=== PATIENT | female | born 1940 | race African-American/Black ===

== ENCOUNTER 2020-01-07 11:53 | Inpatient (IN) | payer MEDICARE, OTHER ==
[~2020-01-07] VITALS: Ht 157.5 cm; Wt 60.3 kg
[2020-01-07 11:55] VITALS: BP 116/81
[2020-01-07] MEDS ORDERED: FUROSEMIDE40 MG ORAL (12:19)
[2020-01-07] MEDS ORDERED: DEXILANT60 MG ORAL (12:19)
[2020-01-07] MEDS ORDERED: [UNRECOGNIZED DRUG - OTHER] IH (12:19)
[2020-01-07] MEDS ORDERED: SPIRONOLACTONE25 MG ORAL (12:19)
[2020-01-07] MEDS ORDERED: INCRUSE ELLI62.5 MCG IH (12:19)
[2020-01-07] MEDS ORDERED: ELIQUIS2.5 MG PO (12:19)
[2020-01-07] MEDS ORDERED: MULTIVITAMINS1 EAC2 ORAL (12:19)
[2020-01-07] MEDS ORDERED: [UNRECOGNIZED DRUG - REMARK] PO (12:26)
[2020-01-07] MEDS ORDERED: VENTOLIN HFA18 GM INH (12:26)
[2020-01-07] MEDS ORDERED: DOCUSATE SODIU100 MG ORAL (12:26)
[2020-01-07] MEDS ORDERED: METOLAZONE5 MG PO (12:26)
[2020-01-07] MEDS ORDERED: MIDODRINE HCL5 MG ORAL (12:28)
[2020-01-07] MEDS ORDERED: DILTIAZEM ER120 MG PO (12:28)
[2020-01-07] MEDS ORDERED: METOCLOPRAMIDE H5 M1 ORAL (12:28)
[2020-01-07 13:27] LABS: APPEARANCE,URINE CLEAR; BASOPHILS % (AUTO) 1.8 % (0.0-2.0); BILIRUBIN, URINE NEGATIVE (NEGATIVE); COLOR,URINE PALE YELLOW; EOSINOPHILS % (AUTO) 1.7 % (0.0-3.0); GLUCOSE, URINE (UA) NEGATIVE (NEGATIVE); HEMATOCRIT 34.8 % (37.0-47.0); HEMOGLOBIN 11.6 G/DL (12.0-16.0); KETONES,URINE NEGATIVE (NEGATIVE); LEUKOCYTE ESTERASE ,URINE NEGATIVE (NEGATIVE); LYMPHOCYTES % (AUTO) 9.7 % (20.0-45.0); MEAN CORPUSCULAR VOLUME 87 FL (80-99); MONOCYTES % (AUTO) 6.7 % (1.0-10.0); NEUTROPHILS % (AUTO) 80.1 % (45.0-75.0); NITRITE,URINE NEGATIVE (NEGATIVE); PH,URINE 6 (4.5-8.0); PLATELET COUNT 234 K/UL (150-450); PROTEIN,URINE NEGATIVE (NEGATIVE); RED BLOOD COUNT 4.01 M/UL (4.20-5.40); RED CELL DISTRIBUTION WIDTH 17.2 % (11.6-14.8); UROBILINOGEN,URINE NORMAL MG/DL (0.0-1.0); WHITE BLOOD COUNT 8.5 K/UL (4.8-10.8)
[2020-01-07 13:32] LABS: ANION GAP 5 mmol/L (5-15); BLOOD UREA NITROGEN 37 mg/dL (7-18); CALCIUM 8.1 MG/DL (8.5-10.1); CARBON DIOXIDE 32 MMOL/L (21-32); CHLORIDE 106 MMOL/L (98-107); CREATININE 1.5 MG/DL (0.55-1.30); POTASSIUM 4.6 MMOL/L (3.5-5.1); SODIUM 143 MMOL/L (136-145)
[2020-01-07 13:46] LABS: ALANINE AMINOTRANSFERASE 20 U/L (12-78); ALBUMIN 2.1 G/DL (3.4-5.0); ALBUMIN/GLOBULIN RATIO 0.6 (1.0-2.7); ALKALINE PHOSPHATASE 85 U/L (46-116); ASPARTATE AMINO TRANSFERASE 29 U/L (15-37); BILIRUBIN,TOTAL 0.4 MG/DL (0.2-1.0); CKMB 1.6 NG/ML (0.0-3.6); CREATINE KINASE 68 U/L (26-308)
[2020-01-07 14:00] VITALS: BP 123/78
--- NOTE | 2020-01-07 15:12 | Emergency Room Report ---
History of Present Illness General Chief Complaint: Upper Respiratory Illness Source: Medical Record, EMS Present Illness HPI 79-year-old female history of CHF, chronic kidney disease, chronic right pleural effusion presents for shortness of breath and right pleural effusion. Patient has a history of requiring thoracentesis in the past. Last thoracentesis was at the beginning of the year. She denies any fever cough. She denies any nausea or vomiting. She does come from a [facility] facility with coronavirus patients. She has a history of right pleural effusion. She was alert oriented in no distress on arrival. Allergies: Coded Allergies: No Known Allergies (Unverified , 01/07/20) COVID-19 Screening Contact w/high risk pt: No Recent Travel to affected area: No Experienced COVID-19 symptoms?: Yes COVID-19 symptoms experienced: Cough Patient History Last Menstrual Period: na Nursing Documentation-PMH Past Medical History: No History, Except For Hx Cardiac Problems: Yes - afib, aortic stenosis, endocarditis, cor pulmonale Hx Hypertension: Yes Hx COPD: Yes Hx Cerebrovascular Accident: Yes Review of Systems All Other Systems: negative except mentioned in HPI Physical Exam Vital Signs Date Time Temp Pulse Resp B/P (MAP) Pulse Ox O2 Delivery O2 Flow Rate FiO2 01/07/20 11:55 98.4 101 22 116/81 98 Nasal Cannula 4.0 Sp02 EP Interpretation: reviewed, normal General Appearance: well appearing, no apparent distress Head: normocephalic, atraumatic Eyes: bilateral eye PERRL, bilateral eye EOMI ENT: hearing grossly normal, moist mucus membranes Neck: full range of motion, supple Respiratory: no respiratory distress, no wheezing, decreased breath sounds - Right lung base Cardiovascular #1: normal peripheral pulses, no murmur, tachycardia Gastrointestinal: non tender, soft, non-distended, no guarding Musculoskeletal: other - Bilateral lower extremity edema 2+ up to the knees Neurologic: alert, oriented x3, no focal defects Skin: normal color, warm/dry Medical Decision Making Diagnostic Impression: Primary Impression: Recurrent right pleural effusion Additional Impression: Possible Covd-19 infection ER Course Patient presented from [facility] facility for shortness of breath and recurrent right pleural effusion. Primary care doctor also requested coronavirus testing as she came from a sick facility with coronavirus patients. Patient was alert oriented no acute distress. Chest x-ray did demonstrate right pleural effusion. She was afebrile and normal white blood cell count. Actually have a low suspicion for pneumonia at this time and suspect is having a recurrent right pleural effusion. She may require thoracentesis as an inpatient. Will be admitted to her primary doctor. Lactate was mildly elevated however low suspicion for sepsis at this time. Patient does have a history of liver dysfunction which may cause mild elevation in her lactate. Laboratory Tests Test 01/07/20 13:00 White Blood Count 8.5 K/UL (4.8-10.8) Red Blood Count 4.01 M/UL (4.20-5.40) L Hemoglobin 11.6 G/DL (12.0-16.0) L Hematocrit 34.8 % (37.0-47.0) L Mean Corpuscular Volume 87 FL (80-99) Mean Corpuscular Hemoglobin 29.0 PG (27.0-31.0) Mean Corpuscular Hemoglobin Concent 33.4 G/DL (32.0-36.0) Red Cell Distribution Width 17.2 % (11.6-14.8) H Platelet Count 234 K/UL (150-450) Mean Platelet Volume 6.7 FL (6.5-10.1) Neutrophils (%) (Auto) 80.1 % (45.0-75.0) H Lymphocytes (%) (Auto) 9.7 % (20.0-45.0) L Monocytes (%) (Auto) 6.7 % (1.0-10.0) Eosinophils (%) (Auto) 1.7 % (0.0-3.0) Basophils (%) (Auto) 1.8 % (0.0-2.0) Prothrombin Time 11.1 SEC (9.30-11.50) Prothrombin Time INR 1.0 (0.9-1.1) Activated Partial Thromboplast Time 30 SEC (23-33) Urine Color Pale yellow Urine Appearance Clear Urine pH 6 (4.5-8.0) Urine Specific [place] 1.015 (1.005-1.035) Urine Protein Negative (NEGATIVE) Urine Glucose (UA) Negative (NEGATIVE) Urine Ketones Negative (NEGATIVE) Urine Blood 2+ (NEGATIVE) H Urine Nitrite Negative (NEGATIVE) Urine Bilirubin Negative (NEGATIVE) Urine Urobilinogen Normal MG/DL (0.0-1.0) Urine Leukocyte Esterase Negative (NEGATIVE) Urine RBC 2-4 /HPF (0 - 2) H Urine WBC 0-2 /HPF (0 - 2) Urine Squamous Epithelial Cells Occasional /LPF Urine Bacteria Occasional /HPF (NONE) Sodium Level 143 MMOL/L (136-145) Potassium Level 4.6 MMOL/L (3.5-5.1) Chloride Level 106 MMOL/L (98-107) Carbon Dioxide Level 32 MMOL/L (21-32) Anion Gap 5 mmol/L (5-15) Blood Urea Nitrogen 37 mg/dL (7-18) H Creatinine 1.5 MG/DL (0.55-1.30) H Estimated Glomerular Filtration Rate 40.7 mL/min (>60) Glucose Level 100 MG/DL (74-106) Lactic Acid Level 2.50 mmol/L (0.4-2.0) H Calcium Level 8.1 MG/DL (8.5-10.1) L Total Bilirubin 0.4 MG/DL (0.2-1.0) Aspartate Amino Transferase (AST) 29 U/L (15-37) Alanine Aminotransferase (ALT) 20 U/L (12-78) Alkaline Phosphatase 85 U/L (46-116) Total Creatine Kinase 68 U/L (26-308) Creatine Kinase MB 1.6 NG/ML (0.0-3.6) Creatine Kinase MB Relative Index 2.3 Troponin I 0.010 ng/mL (0.000-0.056) Total Protein 5.9 G/DL (6.4-8.2) L Albumin 2.1 G/DL (3.4-5.0) L Globulin 3.8 g/dL Albumin/Globulin Ratio 0.6 (1.0-2.7) L EKG Diagnostic Results EP Interpretation: 1214 Other Impression afib, rate 101, Nonspecific T wave changes, abnormal ekg Chest X-Ray Diagnostic Results Chest X-Ray Diagnostic Results : Chest X-Ray Ordered: Yes # of Views/Limited/Complete: 1 View Indication: Shortness of Breath EP Interpretation: Yes Interpretation: other - Cardiomegaly, right pleural effusion, pulmonary vascular congestion Last Vital Signs Date Time Temp Pulse Resp B/P (MAP) Pulse Ox O2 Delivery O2 Flow Rate FiO2 01/07/20 14:00 98.6 100 18 123/78 99 Nasal Cannula 4.0 Disposition: ADMITTED INPATIENT Condition: Serious Referrals: Stone Locke MD (PCP) Burton Paiz M.D. January 07, 2020 15:12
--- NOTE | 2020-01-07 15:39 | Diagnostic Imaging Report ---
Indication: Shortness of breath Technique: One view of the chest Comparison: none Findings: The heart is enlarged. There is a large right pleural effusion. There is a small left pleural effusion. There is mild interstitial congestion and possibly some hazy right upper lung opacity. Impression: Cardiomegaly Large right and small left pleural effusions Mild interstitial edema
[2020-01-07 17:25] VITALS: BP 134/66
[2020-01-07] MEDS ORDERED: Milk of Magnesia 30ml Ud ORAL PRN (17:45)
[2020-01-07] MEDS: Docusate 100mg cap ORAL SCH (18:00)
[2020-01-07 20:00] VITALS: BP 99/59
[2020-01-07] MEDS ORDERED: Albuterol 90mcg Inhaler 8gm INH PRN (20:15)
[2020-01-08] VITALS: BP 109/66
--- NOTE | 2020-01-08 02:30 | Consultation ---
DATE OF CONSULTATION: 01/07/2020 PULMONARY CONSULTATION CONSULTING PHYSICIAN: Aram Razo MD. HISTORY OF PRESENT ILLNESS: This is a 79-year-old female with history of CHF, CKD, and chronic right effusion who came to the hospital. Patient has had thoracentesis in the past, however, the last 1 was done earlier this year. Patient denied any fever or cough. She was seen and worked up and admitted to the hospital. Apparently, she has been exposed to COVID-19 patients. PAST HISTORY: Notable for AFib, aortic stenosis, history of endocarditis, cor pulmonale, COPD, hypertension, previous CVA, group home resident status. HOME MEDICATIONS: Reviewed and reconciled in the chart. REVIEW OF SYSTEMS: Unreliable. PREVIOUS SURGERIES: Previous thoracentesis. PHYSICAL EXAMINATION: GENERAL: Reveals a 79-year-old female. VITAL SIGNS: Blood pressure at this time is 120/70, heart rate 100, respirations 18, O2 saturation 95% on 2 L of oxygen, 99% on 4 liters of oxygen. She is afebrile. HEENT: Unremarkable. CHEST: Decreased breath sounds at the right base. ABDOMEN: Soft. EXTREMITIES: There is no edema. LABORATORY DATA: Lab testing shows a hemoglobin . Creatinine 1.5. Lactic acid 2.5, repeated 1.6. Albumin is 2.1. Urinalysis shows few rbc's. Coags are negative. X-ray chest was obtained, which shows a large right effusion, which is chronic. There is a small left effusion. IMPRESSION: 1. Bilateral pleural effusions, right greater than left. 2. intermediate resident. 3. CHF. 4. CKD. DISCUSSION: Patient had a transiently high lactic acid. I am unclear as to the origin of that problem. She does not appear to be septic or infected. It will be prudent to hold off antibiotics till there is a clear source of infection. There is no fever or any obvious signs of infection. She may benefit from diuresis. I would hold off on thoracentesis as this is a chronic effusion and there is a risk of trapped lung/pneumothorax. At this time, also she is asymptomatic from pulmonary standpoint. We will follow carefully. Aram Razo M.D. DR: RUBIA JOB#: [id number] CC:
[2020-01-08 04:00] VITALS: BP 110/66
[2020-01-08 08:00] VITALS: BP 102/54
[2020-01-08 08:34] LABS: BASOPHILS % (AUTO) 2.2 % (0.0-2.0); EOSINOPHILS % (AUTO) 1.7 % (0.0-3.0); HEMATOCRIT 30.7 % (37.0-47.0); HEMOGLOBIN 10.5 G/DL (12.0-16.0); LYMPHOCYTES % (AUTO) 7.1 % (20.0-45.0); MEAN CORPUSCULAR VOLUME 86 FL (80-99); MONOCYTES % (AUTO) 8.6 % (1.0-10.0); NEUTROPHILS % (AUTO) 80.4 % (45.0-75.0); PLATELET COUNT 200 K/UL (150-450); RED BLOOD COUNT 3.56 M/UL (4.20-5.40); RED CELL DISTRIBUTION WIDTH 16.9 % (11.6-14.8); WHITE BLOOD COUNT 9.6 K/UL (4.8-10.8)
[2020-01-08 08:52] LABS: ALANINE AMINOTRANSFERASE 18 U/L (12-78); ALBUMIN 1.8 G/DL (3.4-5.0); ALBUMIN/GLOBULIN RATIO 0.5 (1.0-2.7); ALKALINE PHOSPHATASE 60 U/L (46-116); ANION GAP 7 mmol/L (5-15); ASPARTATE AMINO TRANSFERASE 26 U/L (15-37); BILIRUBIN,TOTAL 0.5 MG/DL (0.2-1.0); BLOOD UREA NITROGEN 37 mg/dL (7-18); CARBON DIOXIDE 28 MMOL/L (21-32); CHLORIDE 106 MMOL/L (98-107); CREATININE 1.5 MG/DL (0.55-1.30); POTASSIUM 4.5 MMOL/L (3.5-5.1); SODIUM 141 MMOL/L (136-145)
[2020-01-08] MEDS ORDERED: dilTIAZem HCl CD 120mg cap ORAL SCH (09:00)
[2020-01-08] MEDS ORDERED: Spironolactone 25mg tab ORAL SCH (09:00)
[2020-01-08] MEDS: Docusate 100mg cap ORAL SCH ×3 (09:29→18:00)
--- NOTE | 2020-01-08 11:50 | Pulmonology Progress Note ---
Subjective Interval Events: None new Constitutional: Reports: no symptoms HEENT: Repors: no symptoms Respiratory: Reports: no symptoms Cardiovascular: Reports: no symptoms Gastrointestinal/Abdominal: Reports: no symptoms Genitourinary: Reports: no symptoms Allergies: Coded Allergies: No Known Allergies (Unverified , 01/07/20) Objective Last 24 Hour Vital Signs Date Time Temp Pulse Resp B/P (MAP) Pulse Ox O2 Delivery O2 Flow Rate FiO2 01/08/20 09:00 Nasal Cannula 3.0 01/08/20 09:00 109 102/54 01/08/20 08:00 97.7 109 20 102/54 (70) 100 01/08/20 07:32 98 Nasal Cannula 3.0 32 01/08/20 04:00 98.2 98 22 110/66 (81) 100 01/08/20 00:00 98.8 106 22 109/66 (80) 98 01/07/20 21:00 Nasal Cannula 3.0 01/07/20 20:00 97.1 94 26 99/59 (72) 99 01/07/20 18:19 Nasal Cannula 3.0 01/07/20 17:25 98.9 83 16 134/66 99 Nasal Cannula 4.0 01/07/20 17:25 98.9 83 16 134/66 99 Nasal Cannula 4.0 01/07/20 14:00 98.6 100 18 123/78 99 Nasal Cannula 4.0 01/07/20 12:02 101 22 Nasal Cannula 4.0 01/07/20 11:55 98.4 101 22 116/81 (93) 98 Nasal Cannula 4.0 01/07/20 11:55 98.4 101 22 116/81 98 Nasal Cannula 4.0 Intake and Output 01/07/20 01/08/20 19:00 07:00 Intake Total 240 ml Output Total 200 ml 1000 ml Balance 40 ml -1000 ml Intake Oral 240 ml Output Urine Total 200 ml 1000 ml # Bowel Movements 1 General Appearance: no acute distress HEENT: normocephalic Respiratory/Chest: chest wall non-tender, lungs clear Cardiovascular: normal peripheral pulses, normal rate Abdomen: normal bowel sounds Microbiology Date/Time Source Procedure Growth Status 01/07/20 12:45 Rectum Received Laboratory Tests 01/07/20 13:00: White Blood Count 8.5, Red Blood Count 4.01L, Hemoglobin 11.6L, Hematocrit 34.8L , Mean Corpuscular Volume 87, Mean Corpuscular Hemoglobin 29.0, Mean Corpuscular Hemoglobin Concent 33.4, Red Cell Distribution Width 17.2H, Platelet Count 234, Mean Platelet Volume 6.7, Neutrophils (%) (Auto) 80.1H, Lymphocytes (%) (Auto) 9.7L, Monocytes (%) (Auto) 6.7, Eosinophils (%) (Auto) 1.7, Basophils (%) (Auto) 1.8, Prothrombin Time 11.1, Prothromb Time International Ratio 1.0, Activated Partial Thromboplast Time 30, Urine Color Pale yellow, Urine Appearance Clear, Urine pH 6, Urine Specific [place] 1.015, Urine Protein Negative, Urine Glucose (UA) Negative, Urine Ketones Negative, Urine Blood 2+H, Urine Nitrite Negative, Urine Bilirubin Negative, Urine Urobilinogen Normal, Urine Leukocyte Esterase Negative, Urine RBC 2-4H, Urine WBC 0-2, Urine Squamous Epithelial Cells Occasional, Urine Bacteria Occasional, Sodium Level 143, Potassium Level 4.6, Chloride Level 106, Carbon Dioxide Level 32, Anion Gap 5, Blood Urea Nitrogen 37H, Creatinine 1.5H, Estimat Glomerular Filtration Rate 40.7, Glucose Level 100, Lactic Acid Level 2.50H, Calcium Level 8.1L, Total Bilirubin 0.4, Aspartate Amino Transf (AST/SGOT) 29, Alanine Aminotransferase (ALT/SGPT) 20, Alkaline Phosphatase 85, Total Creatine Kinase 68, Creatine Kinase MB 1.6, Creatine Kinase MB Relative Index 2.3, Troponin I 0.010, Total Protein 5.9L, Albumin 2.1L, Globulin 3.8, Albumin/Globulin Ratio 0.6L 01/07/20 15:00: Lactic Acid Level 1.60 01/08/20 08:10: White Blood Count 9.6, Red Blood Count 3.56L, Hemoglobin 10.5L, Hematocrit 30.7L , Mean Corpuscular Volume 86, Mean Corpuscular Hemoglobin 29.4, Mean Corpuscular Hemoglobin Concent 34.2, Red Cell Distribution Width 16.9H, Platelet Count 200, Mean Platelet Volume 6.0L, Neutrophils (%) (Auto) 80.4H, Lymphocytes (%) (Auto) 7.1L, Monocytes (%) (Auto) 8.6, Eosinophils (%) (Auto) 1.7, Basophils (%) (Auto) 2.2H, Sodium Level 141, Potassium Level 4.5, Chloride Level 106, Carbon Dioxide Level 28, Anion Gap 7, Blood Urea Nitrogen 37H, Creatinine 1.5H, Estimat Glomerular Filtration Rate 40.7, Glucose Level 83, Calcium Level 8.0L, Total Bilirubin 0.5, Aspartate Amino Transf (AST/SGOT) 26, Alanine Aminotransferase (ALT/SGPT) 18, Alkaline Phosphatase 60, Total Protein 5.5L, Albumin 1.8L, Globulin 3.7, Albumin/Globulin Ratio 0.5L Current Medications Medications (Trade) Dose Ordered Sig/Heraclio Route PRN Reason Start Time Stop Time Status Last Admin Dose Admin Acetaminophen (Tylenol) 650 mg Q4H PRN ORAL Mild Pain (Pain Scale 1-3) 01/07/20 17:45 02/06/20 17:44 Albuterol Sulfate (Proventil MDI) 2 puff Q4H PRN INH Shortness of Breath 01/07/20 20:15 04/06/20 20:14 01/08/20 01:00 Apixaban (Eliquis) 2.5 mg DAILY ORAL 01/08/20 09:00 04/07/20 08:59 UNV Diltiazem HCl (Cardizem CD) 120 mg DAILY ORAL 01/08/20 09:00 02/07/20 08:59 Docusate Sodium (Colace) 100 mg TWICE A DAY ORAL 01/07/20 18:00 02/06/20 17:59 01/08/20 09:29 Furosemide (Lasix) 40 mg DAILY IV 01/08/20 09:00 02/07/20 08:59 Magnesium Hydroxide (Mom) 30 ml HSPRN PRN ORAL Constipation 01/07/20 17:45 02/06/20 17:44 Metoclopramide HCl (Reglan) 5 mg Q6H PRN ORAL Nausea & Vomiting 01/07/20 17:45 02/06/20 17:44 Metolazone (Zaroxolyn) 5 mg BID ORAL 01/07/20 18:00 02/06/20 17:59 01/08/20 09:29 Midodrine (Pro-Amatine) 5 mg TID ORAL 01/08/20 09:00 04/06/20 17:59 Multivitamins (Multivitamins) 1 tab DAILY ORAL 01/08/20 09:00 02/07/20 08:59 01/08/20 09:29 Spironolactone (Aldactone) 25 mg DAILY ORAL 01/08/20 09:00 02/07/20 08:59 01/08/20 09:30 Assessment/Plan Assessment/Plan IMPRESSION: 1. Bilateral pleural effusions, right greater than left. 2. intermediate resident. 3. CHF. 4. CKD. DISCUSSION: Patient had a transiently high lactic acid. I am unclear as to the origin of that problem. She does not appear to be septic or infected. It will be prudent to hold off antibiotics till there is a clear source of infection. There is no fever or any obvious signs of infection. She may benefit from diuresis. I would hold off on thoracentesis as this is a chronic effusion and there is a risk of trapped lung/pneumothorax. At this time, also she is asymptomatic from pulmonary standpoint. We will follow carefully. Aram Razo M.D. Aram Razo MD January 08, 2020 11:50
[2020-01-08 12:00] VITALS: BP 103/63
--- NOTE | 2020-01-08 14:16 | Cardiac Electrophysiology PN ---
Subjective Subjective [id number] Objective Last 24 Hour Vital Signs Date Time Temp Pulse Resp B/P (MAP) Pulse Ox O2 Delivery O2 Flow Rate FiO2 01/08/20 12:00 98.2 108 20 103/63 (76) 98 01/08/20 09:00 Nasal Cannula 3.0 01/08/20 09:00 109 102/54 01/08/20 08:00 97.7 109 20 102/54 (70) 100 01/08/20 07:32 98 Nasal Cannula 3.0 32 01/08/20 04:00 98.2 98 22 110/66 (81) 100 01/08/20 00:00 98.8 106 22 109/66 (80) 98 01/07/20 21:00 Nasal Cannula 3.0 01/07/20 20:00 97.1 94 26 99/59 (72) 99 01/07/20 18:19 Nasal Cannula 3.0 01/07/20 17:25 98.9 83 16 134/66 99 Nasal Cannula 4.0 01/07/20 17:25 98.9 83 16 134/66 99 Nasal Cannula 4.0 Intake and Output 01/07/20 01/08/20 19:00 07:00 Intake Total 240 ml Output Total 200 ml 1000 ml Balance 40 ml -1000 ml Intake Oral 240 ml Output Urine Total 200 ml 1000 ml # Bowel Movements 1 Laboratory Tests Test 01/07/20 15:00 01/08/20 08:10 Lactic Acid Level 1.60 mmol/L (0.66-2.22) White Blood Count 9.6 K/UL (4.8-10.8) Red Blood Count 3.56 M/UL (4.20-5.40) L Hemoglobin 10.5 G/DL (12.0-16.0) L Hematocrit 30.7 % (37.0-47.0) L Mean Corpuscular Volume 86 FL (80-99) Mean Corpuscular Hemoglobin 29.4 PG (27.0-31.0) Mean Corpuscular Hemoglobin Concent 34.2 G/DL (32.0-36.0) Red Cell Distribution Width 16.9 % (11.6-14.8) H Platelet Count 200 K/UL (150-450) Mean Platelet Volume 6.0 FL (6.5-10.1) L Neutrophils (%) (Auto) 80.4 % (45.0-75.0) H Lymphocytes (%) (Auto) 7.1 % (20.0-45.0) L Monocytes (%) (Auto) 8.6 % (1.0-10.0) Eosinophils (%) (Auto) 1.7 % (0.0-3.0) Basophils (%) (Auto) 2.2 % (0.0-2.0) H Sodium Level 141 MMOL/L (136-145) Potassium Level 4.5 MMOL/L (3.5-5.1) Chloride Level 106 MMOL/L (98-107) Carbon Dioxide Level 28 MMOL/L (21-32) Anion Gap 7 mmol/L (5-15) Blood Urea Nitrogen 37 mg/dL (7-18) H Creatinine 1.5 MG/DL (0.55-1.30) H Estimat Glomerular Filtration Rate 40.7 mL/min (>60) Glucose Level 83 MG/DL (74-106) Calcium Level 8.0 MG/DL (8.5-10.1) L Total Bilirubin 0.5 MG/DL (0.2-1.0) Aspartate Amino Transf (AST/SGOT) 26 U/L (15-37) Alanine Aminotransferase (ALT/SGPT) 18 U/L (12-78) Alkaline Phosphatase 60 U/L (46-116) Total Protein 5.5 G/DL (6.4-8.2) L Albumin 1.8 G/DL (3.4-5.0) L Globulin 3.7 g/dL Albumin/Globulin Ratio 0.5 (1.0-2.7) L Microbiology Date/Time Source Procedure Growth Status 01/07/20 12:45 Rectum Received Christiano Barney MD January 08, 2020 14:16
[2020-01-08] MEDS ORDERED: Eliquis 2.5mg tablet ORAL SCH (14:59)
[2020-01-08] MEDS: Eliquis 2.5mg tablet ORAL SCH (15:46)
[2020-01-08 16:00] VITALS: BP 104/61
[2020-01-08] MEDS ORDERED: Milk of Magnesia 30ml Ud ORAL PRN (16:00)
[2020-01-08] MEDS ORDERED: Albuterol 90mcg Inhaler 8gm INH PRN (16:15)
[2020-01-08 20:00] VITALS: BP 137/77
--- NOTE | 2020-01-08 21:00 | History and Physical Report ---
DATE OF ADMISSION: 01/07/2020 HISTORY OF PRESENT ILLNESS: The patient comes in, has a history of chronic renal insufficiency and CHF with defibrillator, shortness of breath, worsening pleural effusion, and also possible pneumonia, infiltrate on the x-ray. COVID swab was sent according to the ER doctor. The patient has a history of thoracentesis in the past. The patient denies fever and cough. Does have shortness of breath at times. Denies nausea or vomiting. Denies chills. She is not in any distress. PAST MEDICAL HISTORY: Chronic renal insufficiency, CHF, history of atrial fibrillation, history of aortic stenosis, history of endocarditis, history of cor pulmonale, history of hypertension and COPD, history of CVA, and leg edema as well as constipation as well as GERD. PAST SURGICAL HISTORY: Denies. FAMILY HISTORY: Noncontributory. SOCIAL HISTORY: Does have history of smoking. Denies history of alcohol abuse. Denies history of drug abuse. ALLERGIES: No known allergies. MEDICATIONS: Eliquis, , diltiazem, Lasix, Aldactone, and breathing treatment, albuterol. REVIEW OF SYSTEMS: HEENT: Denies headaches. Respiratory: Does have cough at times. Denies wheezing. Cardiovascular: Denies chest pain. Gastrointestinal: Reports occasional heartburn. Extremities: Denies pain in lower extremities. Central Nervous System: Denies change in speech pattern. The patient just finished a course of antibiotics for endocarditis. PHYSICAL EXAMINATION: VITAL SIGNS: Temperature 98.2, pulse is 98, blood pressure 110/66. HEENT: PERRLA. NECK: Supple. CHEST: Bibasilar rales. CARDIOVASCULAR: Regular rate and rhythm. No murmurs. ABDOMEN: Soft, nontender. EXTREMITIES: 1+ edema. NEUROLOGIC: She is able to move her extremities. LABORATORY DATA: WBC of 8.5, hemoglobin 11.6, platelets 234. Sodium 43, potassium 4.6, BUN of 37, creatinine 1.5, glucose of 100. Troponin is negative. Chest x-ray shows possible infiltrate and pleural effusion. ASSESSMENT AND PLAN: Pneumonia, pleural effusion, COVID test was sent. The patient comes from facility with positive COVID cases. I have consulted Dr. Barney, Dr. Razo, and Dr. Dr. Rajesh Green for the management of the CHF as well as pneumonia and possible thoracentesis for her worsening pleural effusion and antibiotics per Dr. Rajesh Green. Stone Locke M.D. DR: SURENDRA JOB#: [id number] CC:
--- NOTE | 2020-01-08 21:29 | Consultation ---
DATE OF CONSULTATION: 01/08/2020 INFECTIOUS DISEASE CONSULTATION CONSULTING PHYSICIAN: Rajesh Green MD. PRIMARY ATTENDING: Stone Locke MD. REASON FOR CONSULT: Pleural effusion, rule out of COVID-19. HISTORY OF PRESENT ILLNESS: This is a 79-year-old female admitted yesterday from nursing facility because of shortness of breath and coughing. She has history of pleural effusion in the past. Has CHF. No fever. No chills and no other symptoms. PAST MEDICAL HISTORY: CHF, chronic kidney disease, aortic stenosis, atrial fibrillation, cor pulmonale, COPD, anemia, history of CVA. Patient states that she has also 2 leaking valves. Has gallstones, neuropathy. Has history of hospitalization in [facility] 2 months ago. At that time she received diuretic and symptoms improved. ALLERGIES: No known drug allergies. MEDICATIONS: Getting multivitamin, Cardizem, IV Lasix, Eliquis, Aldactone, midodrine, albuterol, Zaroxolyn, metoclopramide, magnesium hydroxide, Tylenol. SOCIAL HISTORY: Never smoker, but has history of secondhand smoking in job place. No history of drug or alcohol abuse. halfway resident. Has four children. Three of them are , two because of cancer, one because of pneumonia. REVIEW OF SYSTEMS: Patient denies any fever and chills. No chest pain. Has dry cough that is not more than usual. Has shortness of breath. No nausea. No vomiting. No dysuria. Has Shelley catheter placement since admission. PHYSICAL EXAMINATION: VITAL SIGNS: Temperature 97.9, pulse 109, blood pressure 102/54. GENERAL APPEARANCE: No acute distress. Seems to have normal weight. HEART: Tachycardic. LUNGS: Bilateral rhonchi. ABDOMEN: Soft, nontender. EXTREMITIES: Has bilateral edema of legs. GENITOURINARY: Has Shelley catheter. NEUROLOGIC: Awake, alert, oriented x3. LABORATORY AND DIAGNOSTIC DATA: WBC 9.6, hemoglobin 10.5, hematocrit 30.7, platelets 200. Sodium 141, potassium 4.5, chloride 106, bicarbonate 28, BUN 37, creatinine 1.5, albumin is 1.8. UA, wbc's 0 to 2. Chest x-ray showed cardiomegaly, large right and small right pleural effusion. Mild interstitial edema. IMPRESSION: Pleural effusion that seems to be recurrent, likely secondary to congestive heart failure. Patient has shortness of breath, cough, try to rule out of COVID-19. Patient also is a [facility] resident. Has chronic kidney disease, valvular heart disease with aortic stenosis. Has COPD, anemia, atrial fibrillation. RECOMMENDATION: Observe off antibiotic. We will follow up COVID-19 test. Needs thoracentesis if not responding to diuretics. At the end of my exam, I thank Dr. Locke for involving me in the care of this patient. Rajesh Green M.D. DR: TRACEE JOB#: [id number] CC:
--- NOTE | 2020-01-08 22:00 | Consultation ---
DATE OF CONSULTATION: 01/08/2020 CARDIOLOGY CONSULTATION CONSULTING PHYSICIAN: Christiano Barnye MD. REFERRING PHYSICIAN: Stone Locke MD. REASON FOR CONSULTATION: Management of congestive heart failure, aortic stenosis, and pleural effusion. HISTORY OF PRESENT ILLNESS: Patient is a 79-year-old lady, under cardiology care of Dr. Goodman who has paroxysmal atrial fibrillation, history of endocarditis, and aortic stenosis who presented to the hospital for shortness of breath. Patient also has chronic right pleural effusion for which has had thoracenteses in the past. Last one was earlier this year. Patient did not have any cough or fever and was admitted to the hospital for further evaluation from [facility] with Coronavirus patients. The first COVID test was negative and a Cardiology consultation was obtained for further evaluation. REVIEW OF SYSTEMS: Negative other than what is mentioned in the history of present illness. PAST MEDICAL HISTORY: As mentioned above. FAMILY HISTORY: Noncontributory. SOCIAL HISTORY: [place]. Does smoke or drink alcohol. PHYSICAL EXAMINATION: VITAL SIGNS: Blood pressure 116/81, pulse is 101, respirations 18. HEAD AND NECK: Shows positive JVD. LUNGS: Coarse rhonchi. CARDIOVASCULAR: Shows regular S1 and S2 with no gallop or murmur. ABDOMEN: Soft. EXTREMITIES: Bilateral 2+ pitting edema. LABORATORY AND DIAGNOSTIC DATA: Her labs show white count 9.7, hemoglobin 10.5, hematocrit 31, and platelet count of 200. Sodium 141, potassium 4.5, BUN of 37, creatinine 1.5, and glucose of 83. Lactic acid 2.5. First troponin is negative. ASSESSMENT AND PLAN: 1. Right pleural effusion. Patient may need repeat thoracentesis. We will get an echocardiogram for further evaluation. She is also on Lasix 40 IV daily. 2. History of congestive heart failure. Again, echocardiogram. Continue Lasix 40 mg IV daily. 3. Paroxysmal atrial fibrillation, on Cardizem CD 120 mg daily and Eliquis 2.5 mg daily that need to be increased to b.i.d. dosing. Patient is also on Aldactone 25 daily for congestive heart failure as well as Zaroxolyn. 4. Severe bilateral lower extremity edema, on Zaroxolyn, Aldactone, and Lasix. 5. Hypertension. Continue Cardizem, Lasix, and Aldactone. I would discontinue midodrine at this time. 6. History of COPD and pulmonary hypertension. 7. Chronic kidney disease. 8. Cor pulmonale. Thank you very much for allowing me to participate in the care of this patient. Please do not hesitate to contact me for any questions regarding my evaluation. Christiano Barney M.D. DR: MAURO JOB#: [id number] CC:
[2020-01-09] VITALS: BP 96/60
[2020-01-09 04:00] VITALS: BP 108/74
[2020-01-09 08:00] VITALS: BP 156/93
[2020-01-09] MEDS: Eliquis 2.5mg tablet ORAL SCH (08:51)
[2020-01-09] MEDS: Docusate 100mg cap ORAL SCH ×2 (08:51→18:00)
[2020-01-09] MEDS: Spironolactone 25mg tab ORAL SCH (08:51)
[2020-01-09] MEDS: dilTIAZem HCl CD 120mg cap ORAL SCH (08:52)
--- NOTE | 2020-01-09 11:15 | Pulmonology Progress Note ---
Subjective Interval Events: None new Constitutional: Reports: no symptoms HEENT: Repors: no symptoms Respiratory: Reports: no symptoms Cardiovascular: Reports: no symptoms Gastrointestinal/Abdominal: Reports: no symptoms Genitourinary: Reports: no symptoms Allergies: Coded Allergies: No Known Allergies (Unverified , 01/07/20) Objective Last 24 Hour Vital Signs Date Time Temp Pulse Resp B/P (MAP) Pulse Ox O2 Delivery O2 Flow Rate FiO2 01/09/20 09:51 121 01/09/20 09:00 Room Air 01/09/20 08:52 100 156/93 01/09/20 08:00 98.0 100 20 156/93 (114) 98 01/09/20 07:44 101 01/09/20 04:58 97.7 01/09/20 04:00 98.0 101 20 108/74 (85) 96 01/09/20 04:00 100 01/09/20 00:00 93 01/09/20 00:00 97.7 95 20 96/60 (72) 96 01/08/20 20:57 Room Air 01/08/20 20:00 97.5 107 20 137/77 (97) 98 01/08/20 20:00 93 01/08/20 16:15 109 01/08/20 16:00 97.0 101 20 104/61 (75) 100 01/08/20 12:00 98.2 108 20 103/63 (76) 98 Intake and Output 01/08/20 01/09/20 19:00 07:00 Intake Total 140 ml 180 ml Output Total 300 ml Balance -160 ml 180 ml Intake Oral 140 ml 180 ml Output Urine Total 300 ml General Appearance: no acute distress HEENT: normocephalic Respiratory/Chest: chest wall non-tender, lungs clear Cardiovascular: normal peripheral pulses, normal rate Abdomen: normal bowel sounds Microbiology Date/Time Source Procedure Growth Status 01/07/20 13:00 Blood Blood Culture - Preliminary NO GROWTH AFTER 24 HOURS Resulted 01/07/20 12:45 Blood Blood Culture - Preliminary NO GROWTH AFTER 24 HOURS Resulted 01/07/20 13:00 Nasopharynx Coronavirus COVID-19 PCR (SAMARIA) - Final Complete 01/07/20 12:45 Nasal Nares MRSA Culture - Final NO METHICILLIN RESISTANT STAPH AUREUS... Complete 01/07/20 12:45 Rectum VRE Culture - Final Enterococcus Faecalis - Vre Complete 01/07/20 12:45 Rectum Received Laboratory Tests 01/09/20 04:45: Troponin I 0.023 Current Medications Medications (Trade) Dose Ordered Sig/Heraclio Route PRN Reason Start Time Stop Time Status Last Admin Dose Admin Acetaminophen (Tylenol) 650 mg Q4H PRN ORAL Mild Pain (Pain Scale 1-3) 01/08/20 16:00 02/06/20 15:59 01/09/20 04:28 Albuterol Sulfate (Proventil MDI) 2 puff Q4H PRN INH Shortness of Breath 01/08/20 16:15 04/06/20 20:14 Apixaban (Eliquis) 2.5 mg DAILY ORAL 01/08/20 15:18 04/07/20 15:17 01/09/20 08:51 Diltiazem HCl (Cardizem CD) 120 mg DAILY ORAL 01/09/20 09:00 02/07/20 08:59 01/09/20 08:52 Docusate Sodium (Colace) 100 mg TWICE A DAY ORAL 01/08/20 18:00 02/06/20 17:59 01/09/20 08:51 Furosemide (Lasix) 40 mg DAILY IV 01/09/20 09:00 02/07/20 08:59 01/09/20 08:52 Magnesium Hydroxide (Mom) 30 ml HSPRN PRN ORAL Constipation 01/08/20 16:00 02/06/20 15:59 Metoclopramide HCl (Reglan) 5 mg Q6H PRN ORAL Nausea & Vomiting 01/08/20 16:00 02/06/20 15:59 Metolazone (Zaroxolyn) 5 mg BID ORAL 01/08/20 18:00 02/06/20 17:59 01/09/20 08:52 Midodrine (Pro-Amatine) 5 mg TID ORAL 01/08/20 18:00 04/06/20 17:59 01/09/20 08:51 Multivitamins (Multivitamins) 1 tab DAILY ORAL 01/09/20 09:00 02/07/20 08:59 01/09/20 08:51 Spironolactone (Aldactone) 25 mg DAILY ORAL 01/09/20 09:00 02/07/20 08:59 01/09/20 08:51 Assessment/Plan Assessment/Plan IMPRESSION: 1. Bilateral pleural effusions, right greater than left. 2. [facility] resident. 3. CHF. 4. CKD. DISCUSSION: Patient had a transiently high lactic acid. I am unclear as to the origin of that problem. She does not appear to be septic or infected. She may benefit from diuresis. I would hold off on thoracentesis as this is a chronic effusion and there is a risk of trapped lung/pneumothorax. Additionally, she is asymptomatic from pulmonary standpoint. I will follow carefully. Aram Razo M.D. Aram Razo MD January 09, 2020 11:15
[2020-01-09 12:00] VITALS: BP 114/71
--- NOTE | 2020-01-09 15:22 | Cardiac Electrophysiology PN ---
Assessment/Plan Assessment/Plan 1. Right pleural effusion. Patient may need repeat thoracentesis. Echocardiogram EF 55% She is also on Lasix 40 IV daily. 2. History of congestive heart failure. EF 55% Continue Lasix 40 mg IV daily aldactone and Zaroxoline 3. Paroxysmal atrial fibrillation, on Cardizem CD 120 mg daily, Eliquis 2.5 mg b.i.d. dosing. 4. Severe bilateral lower extremity edema, on Zaroxolyn, Aldactone, and Lasix. 5. Hypertension. Continue Cardizem, Lasix, and Aldactone. 6. History of COPD and sevre pulmonary hypertension PAP 145 7. Chronic kidney disease. 8. Cor pulmonale. SAM RN Subjective Subjective Transferred to [facility]. Had 9 beats of VT. Echo EF 55 but severe pulmonary HTN of 148?! On 3 liter NC. Awaiting second Covid Objective Last 24 Hour Vital Signs Date Time Temp Pulse Resp B/P (MAP) Pulse Ox O2 Delivery O2 Flow Rate FiO2 01/09/20 12:00 98.1 85 20 114/71 (85) 100 01/09/20 09:51 121 01/09/20 09:00 Room Air 01/09/20 08:52 100 156/93 01/09/20 08:00 98.0 100 20 156/93 (114) 98 01/09/20 07:44 101 01/09/20 04:58 97.7 01/09/20 04:00 98.0 101 20 108/74 (85) 96 01/09/20 04:00 100 01/09/20 00:00 93 01/09/20 00:00 97.7 95 20 96/60 (72) 96 01/08/20 20:57 Room Air 01/08/20 20:00 97.5 107 20 137/77 (97) 98 01/08/20 20:00 93 01/08/20 16:15 109 01/08/20 16:00 97.0 101 20 104/61 (75) 100 Intake and Output 01/08/20 01/09/20 19:00 07:00 Intake Total 140 ml 180 ml Output Total 300 ml Balance -160 ml 180 ml Intake Oral 140 ml 180 ml Output Urine Total 300 ml Laboratory Tests Test 01/09/20 04:45 Troponin I 0.023 ng/mL (0.000-0.056) Microbiology Date/Time Source Procedure Growth Status 01/07/20 13:00 Blood Blood Culture - Preliminary NO GROWTH AFTER 24 HOURS Resulted 01/07/20 12:45 Blood Blood Culture - Preliminary NO GROWTH AFTER 24 HOURS Resulted 01/07/20 13:00 Nasopharynx Coronavirus COVID-19 PCR (SAMARIA) - Final Complete 01/07/20 12:45 Nasal Nares MRSA Culture - Final NO METHICILLIN RESISTANT STAPH AUREUS... Complete 01/07/20 12:45 Rectum VRE Culture - Final Enterococcus Faecalis - Vre Complete 01/07/20 12:45 Rectum Received Objective HEAD AND NECK: Positive JVD. LUNGS: Coarse rhonchi. CARDIOVASCULAR: Regular S1 and S2 with no gallop or murmur. ABDOMEN: Soft. EXTREMITIES: Bilateral 2+ pitting edema. Christiano Barney MD January 09, 2020 15:22
[2020-01-09 16:00] VITALS: BP 114/83
--- NOTE | 2020-01-09 16:22 | General Progress Note ---
Assessment/Plan Problem List: (1) Recurrent right pleural effusion ICD Codes: J90 - Pleural effusion, not elsewhere classified SNOMED: 97732111, 29325814 Status: progressing Assessment/Plan: azotemia pleural effusion pna covid test pending afebrile abx per id Subjective ROS Limited/Unobtainable: Yes Allergies: Coded Allergies: No Known Allergies (Unverified , 01/07/20) Objective Last 24 Hour Vital Signs Date Time Temp Pulse Resp B/P (MAP) Pulse Ox O2 Delivery O2 Flow Rate FiO2 01/09/20 12:00 98.1 85 20 114/71 (85) 100 01/09/20 09:51 121 01/09/20 09:00 Room Air 01/09/20 08:52 100 156/93 01/09/20 08:00 98.0 100 20 156/93 (114) 98 01/09/20 07:44 101 01/09/20 04:58 97.7 01/09/20 04:00 98.0 101 20 108/74 (85) 96 01/09/20 04:00 100 01/09/20 00:00 93 01/09/20 00:00 97.7 95 20 96/60 (72) 96 01/08/20 20:57 Room Air 01/08/20 20:00 97.5 107 20 137/77 (97) 98 01/08/20 20:00 93 Intake and Output 01/08/20 01/09/20 19:00 07:00 Intake Total 140 ml 180 ml Output Total 300 ml Balance -160 ml 180 ml Intake Oral 140 ml 180 ml Output Urine Total 300 ml Laboratory Tests 01/09/20 04:45: Troponin I 0.023 Height (Feet): 5 Height (Inches): 2.00 Weight (Pounds): 133 Stone Locke MD January 09, 2020 16:22
[2020-01-09 20:00] VITALS: BP 112/67
[2020-01-09] MEDS: Furosemide 40mg tab ORAL SCH (20:40)
[2020-01-10] VITALS: BP 106/63
[2020-01-10 04:00] VITALS: BP 110/70
[2020-01-10 08:00] VITALS: BP 106/66
[2020-01-10] MEDS: Eliquis 2.5mg tablet ORAL SCH (08:55)
[2020-01-10] MEDS: dilTIAZem HCl CD 120mg cap ORAL SCH (08:55)
[2020-01-10] MEDS: Spironolactone 25mg tab ORAL SCH (08:55)
[2020-01-10] MEDS: Furosemide 40mg tab ORAL SCH ×2 (08:55→17:08)
[2020-01-10] MEDS: Docusate 100mg cap ORAL SCH ×2 (08:56→17:14)
--- NOTE | 2020-01-10 09:46 | Pulmonology Progress Note ---
Subjective ROS Limited/Unobtainable: Yes Interval Events: None new Constitutional: Reports: no symptoms HEENT: Repors: no symptoms Respiratory: Reports: no symptoms Cardiovascular: Reports: no symptoms Gastrointestinal/Abdominal: Reports: no symptoms Genitourinary: Reports: no symptoms Allergies: Coded Allergies: No Known Allergies (Unverified , 01/07/20) Objective Last 24 Hour Vital Signs Date Time Temp Pulse Resp B/P (MAP) Pulse Ox O2 Delivery O2 Flow Rate FiO2 01/10/20 08:55 83 106/66 01/10/20 04:00 98.4 90 20 110/70 (83) 98 01/10/20 04:00 85 01/10/20 00:00 103 01/10/20 00:00 97.8 98 20 106/63 (77) 100 01/09/20 21:00 Room Air 01/09/20 20:00 97.7 91 19 112/67 (82) 97 01/09/20 20:00 92 01/09/20 16:00 97.3 71 20 114/83 (93) 98 01/09/20 16:00 84 01/09/20 12:00 98.1 85 20 114/71 (85) 100 01/09/20 09:51 121 Intake and Output 01/09/20 01/10/20 19:00 07:00 Output Total 250 ml 1 ml Balance -250 ml -1 ml Output Urine Total 250 ml Stool Total 1 ml # Voids 1 1 # Bowel Movements 1 General Appearance: no acute distress HEENT: normocephalic Respiratory/Chest: chest wall non-tender, lungs clear Cardiovascular: normal peripheral pulses, normal rate Abdomen: normal bowel sounds Microbiology Date/Time Source Procedure Growth Status 01/07/20 13:00 Blood Blood Culture - Preliminary NO GROWTH AFTER 48 HOURS Resulted 01/07/20 12:45 Blood Blood Culture - Preliminary NO GROWTH AFTER 48 HOURS Resulted 01/07/20 13:00 Nasopharynx Coronavirus COVID-19 PCR (SAMARIA) - Final Complete 01/07/20 12:45 Nasal Nares MRSA Culture - Final NO METHICILLIN RESISTANT STAPH AUREUS... Complete 01/07/20 12:45 Rectum VRE Culture - Final Enterococcus Faecalis - Vre Complete 01/07/20 12:45 Rectum - Final NO CARBAPENEM-RESISTANT ENTEROBACTERI... Complete Current Medications Medications (Trade) Dose Ordered Sig/Heraclio Route PRN Reason Start Time Stop Time Status Last Admin Dose Admin Acetaminophen (Tylenol) 650 mg Q4H PRN ORAL Mild Pain (Pain Scale 1-3) 01/08/20 16:00 02/06/20 15:59 01/09/20 23:32 Albuterol Sulfate (Proventil MDI) 2 puff Q4H PRN INH Shortness of Breath 01/08/20 16:15 04/06/20 20:14 Apixaban (Eliquis) 2.5 mg DAILY ORAL 01/08/20 15:18 04/07/20 15:17 01/10/20 08:55 Diltiazem HCl (Cardizem CD) 120 mg DAILY ORAL 01/09/20 09:00 02/07/20 08:59 01/10/20 08:55 Docusate Sodium (Colace) 100 mg TWICE A DAY ORAL 01/08/20 18:00 02/06/20 17:59 01/09/20 08:51 Furosemide (Lasix) 40 mg BID ORAL 01/09/20 21:00 02/08/20 20:59 01/10/20 08:55 Magnesium Hydroxide (Mom) 30 ml HSPRN PRN ORAL Constipation 01/08/20 16:00 02/06/20 15:59 Metoclopramide HCl (Reglan) 5 mg Q6H PRN ORAL Nausea & Vomiting 01/08/20 16:00 02/06/20 15:59 Metolazone (Zaroxolyn) 5 mg BID ORAL 01/08/20 18:00 02/06/20 17:59 01/10/20 08:55 Midodrine (Pro-Amatine) 5 mg TID ORAL 01/08/20 18:00 04/06/20 17:59 01/10/20 08:55 Multivitamins (Multivitamins) 1 tab DAILY ORAL 01/09/20 09:00 02/07/20 08:59 01/10/20 08:55 Spironolactone (Aldactone) 25 mg DAILY ORAL 01/09/20 09:00 02/07/20 08:59 01/10/20 08:55 Assessment/Plan Assessment/Plan IMPRESSION: 1. Bilateral pleural effusions, right greater than left. 2. [facility] resident. 3. CHF. 4. CKD. DISCUSSION: COVID 19 negative x 1 She does not appear to be septic or infected. Oscar order second pcr COVID 19 I will follow carefully. Melanie Bonner Omar Syed MD January 10, 2020 09:46
--- NOTE | 2020-01-10 10:48 | Consultation ---
History of Present Illness General Chief Complaint: Upper Respiratory Illness Present Illness Allergies: Coded Allergies: No Known Allergies (Unverified , 01/07/20) Medication History Scheduled Albuterol Sulfate (Ventolin Hfa), 2 PUFFS INH EVERY 4, (Reported) Apixaban (Eliquis), 2.5 MG PO DAILY, (Reported) Dexlansoprazole (Dexilant), 60 MG ORAL DAILY, (Reported) Docusate Sodium* (Docusate Sodium*), 100 MG ORAL TWICE A DAY, (Reported) Furosemide* (Lasix*), 40 MG ORAL DAILY, (Reported) Metoclopramide Hcl* (Metoclopramide Hcl*), 5 MG ORAL EVERY 6 HOURS, (Reported) Metolazone (Metolazone), 5 MG PO BID, (Reported) Midodrine* (Proamatine*), 5 MG ORAL THREE TIMES A DAY, (Reported) Multivitamins* (Multivitamins*), 1 TAB ORAL DAILY, (Reported) Spironolactone* (Aldactone*), 25 MG ORAL DAILY, (Reported) Umeclidinium [place] (Incruse Ellipta), 62.5 MCG IH DAILY, (Reported) [flutic-vilanterol], 1 PUFF IH DAILY, (Reported) [prostate s], 30 ML PO BID, (Reported) Miscellaneous Medications Diltiazem Hcl (Diltiazem Er), 120 MG PO, (Reported) Patient History Healthcare decision maker Resuscitation status Advanced Directive on File Physical Exam Last 24 Hour Vital Signs Date Time Temp Pulse Resp B/P (MAP) Pulse Ox O2 Delivery O2 Flow Rate FiO2 01/10/20 09:00 83 01/10/20 09:00 Nasal Cannula 3.0 01/10/20 08:55 83 106/66 01/10/20 08:00 98.1 83 18 106/66 (79) 93 01/10/20 04:00 98.4 90 20 110/70 (83) 98 01/10/20 04:00 85 01/10/20 00:00 103 01/10/20 00:00 97.8 98 20 106/63 (77) 100 01/09/20 21:00 Room Air 01/09/20 20:00 97.7 91 19 112/67 (82) 97 01/09/20 20:00 92 01/09/20 16:00 97.3 71 20 114/83 (93) 98 01/09/20 16:00 84 01/09/20 12:00 98.1 85 20 114/71 (85) 100 Intake and Output 01/09/20 01/10/20 19:00 07:00 Output Total 250 ml 1 ml Balance -250 ml -1 ml Output Urine Total 250 ml Stool Total 1 ml # Voids 1 1 # Bowel Movements 1 Height (Feet): 5 Height (Inches): 2.00 Weight (Pounds): 133 Medications Current Medications Medications (Trade) Dose Ordered Sig/Heraclio Route PRN Reason Start Time Stop Time Status Last Admin Dose Admin Acetaminophen (Tylenol) 650 mg Q4H PRN ORAL Mild Pain (Pain Scale 1-3) 01/08/20 16:00 02/06/20 15:59 01/09/20 23:32 Albuterol Sulfate (Proventil MDI) 2 puff Q4H PRN INH Shortness of Breath 01/08/20 16:15 04/06/20 20:14 Apixaban (Eliquis) 2.5 mg DAILY ORAL 01/08/20 15:18 04/07/20 15:17 01/10/20 08:55 Diltiazem HCl (Cardizem CD) 120 mg DAILY ORAL 01/09/20 09:00 02/07/20 08:59 01/10/20 08:55 Docusate Sodium (Colace) 100 mg TWICE A DAY ORAL 01/08/20 18:00 02/06/20 17:59 01/09/20 08:51 Furosemide (Lasix) 40 mg BID ORAL 01/09/20 21:00 02/08/20 20:59 01/10/20 08:55 Magnesium Hydroxide (Mom) 30 ml HSPRN PRN ORAL Constipation 01/08/20 16:00 02/06/20 15:59 Metoclopramide HCl (Reglan) 5 mg Q6H PRN ORAL Nausea & Vomiting 01/08/20 16:00 02/06/20 15:59 Metolazone (Zaroxolyn) 5 mg BID ORAL 01/08/20 18:00 02/06/20 17:59 01/10/20 08:55 Midodrine (Pro-Amatine) 5 mg TID ORAL 01/08/20 18:00 04/06/20 17:59 01/10/20 08:55 Multivitamins (Multivitamins) 1 tab DAILY ORAL 01/09/20 09:00 02/07/20 08:59 01/10/20 08:55 Spironolactone (Aldactone) 25 mg DAILY ORAL 01/09/20 09:00 02/07/20 08:59 01/10/20 08:55 Assessment/Plan Assessment/Plan: Hematology Consultaiton SCOTTY CARRERA: Stone Catalan RFC: Anemia and anticoaguation eval DOS: 01/10/2020 HPI 79-year-old female history of CHF, chronic kidney disease, chronic right pleural effusion presents for shortness of breath and right pleural effusion. Patient has a history of requiring thoracentesis in the past. Last thoracentesis was at the beginning of the year. She denies any fever cough. She denies any nausea or vomiting. She does come from a assisted facility with coronavirus patients. She has a history of right pleural effusion. She was alert oriented in no distress on arrival. Heme consulted for eval of anemia as well as patient is on eliquis, per cards. Allergies: No Known Allergies (Unverified , 01/07/20) COVID-19 Screening Contact w/high risk pt: No Recent Travel to affected area: No Experienced COVID-19 symptoms?: Yes COVID-19 symptoms experienced: Cough Patient History Last Menstrual Period: na Nursing Documentation-PMH Past Medical History: No History, Except For Hx Cardiac Problems: Yes - afib, aortic stenosis, endocarditis, cor pulmonale Hx Hypertension: Yes Hx COPD: Yes Hx Cerebrovascular Accident: Yes Review of Systems All Other Systems: negative except mentioned in HPI Physical Exam Vital Signs reviewed, normal General Appearance: well appearing, no apparent distress Heent nc, at Neck: full range of motion, supple Respiratory: no respiratory distress, no wheezing, decreased breath sounds - Right lung base Cardiovascular normal peripheral pulses, no murmur, tachycardia Gastrointestinal: non tender, soft, non-distended, no guarding Musculoskeletal: other - Bilateral lower extremity edema 2+ Neurologic: alert, oriented x3, no focal defects Skin: normal color, warm/dry Laboratory Tests noted Imaging: reviewed Assessment/Plan # Hypercoagulable disorder -- with Paroxysmal atrial fibrillation, on Cardizem CD 120 mg daily, --> per cards, on Eliquis 2.5 mg b.i.d. dosing. --> ok to continue, no bleeding # Anemia of chronic disease due to underlying chronic medical issues, multifactorial v Gi bleed --> Anemia workup has been ordered, rule out gi bleed --> No evidence of hemolysis is noted, peripheral smear has been reviewed. --> Hgb goal >7. Transfuse prn. --> Epogen or iron at this time is not particularly indicated --> Medications have been reviewed --> low threshold for gi evaluation in case has occult + # Right pleural effusion. --> Patient may need repeat thoracentesis. Echocardiogram EF 55% She is also on Lasix IV daily. --> as per pulm --> cyto pending # History of congestive heart failure. EF 55% --> diuresis as per cards # Severe bilateral lower extremity edema, on Zaroxolyn, Aldactone, and Lasix. # Hypertension. Continue Cardizem, Lasix, and Aldactone. # History of COPD and sevre pulmonary hypertension PAP 145 # TERRI on Chronic kidney disease. # Cor pulmonale. The timing of this note does not necessarily reflect the time of the patient was seen. Greatly appreciate consultation. Davin Gregg MD January 10, 2020 10:48
[2020-01-10 12:00] VITALS: BP 101/67
--- NOTE | 2020-01-10 13:06 | Infectious Diseases Prog Note ---
Assessment/Plan Assessment/Plan IMPRESSION: Pleural effusion congestive heart failure. NEGATIVE COVID-19 x 1 chronic kidney disease, valvular heart disease with aortic stenosis. COPD, Anemia, Atrial fibrillation. VRE carrier RECOMMENDATION: Observe off antibiotic Repeat COVID19 test Subjective ROS Limited/Unobtainable: No Constitutional: Denies: fever Respiratory: Denies: dry cough Cardiovascular: Reports: dyspnea on exertion Genitourinary: Reports: other - leaking Shelley catheter Allergies: Coded Allergies: No Known Allergies (Unverified , 01/07/20) Objective Vital Signs Last 24 Hour Vital Signs Date Time Temp Pulse Resp B/P (MAP) Pulse Ox O2 Delivery O2 Flow Rate FiO2 01/10/20 12:00 97.3 93 18 101/67 (78) 92 01/10/20 12:00 83 01/10/20 09:00 83 01/10/20 09:00 Nasal Cannula 3.0 01/10/20 08:55 83 106/66 01/10/20 08:00 98.1 83 18 106/66 (79) 93 01/10/20 04:00 98.4 90 20 110/70 (83) 98 01/10/20 04:00 85 01/10/20 00:00 103 01/10/20 00:00 97.8 98 20 106/63 (77) 100 01/09/20 21:00 Room Air 01/09/20 20:00 97.7 91 19 112/67 (82) 97 01/09/20 20:00 92 01/09/20 16:00 97.3 71 20 114/83 (93) 98 01/09/20 16:00 84 Height (Feet): 5 Height (Inches): 2.00 Weight (Pounds): 133 General Appearance: no acute distress HEENT: mucous membranes moist Respiratory/Chest: lungs clear Abdomen: soft, non tender Extremities: other - legs edema Neurologic/Psychiatric: alert, oriented x 3, responsive Current Medications Medications (Trade) Dose Ordered Sig/Heraclio Route PRN Reason Start Time Stop Time Status Last Admin Dose Admin Acetaminophen (Tylenol) 650 mg Q4H PRN ORAL Mild Pain (Pain Scale 1-3) 01/08/20 16:00 02/06/20 15:59 01/09/20 23:32 Albuterol Sulfate (Proventil MDI) 2 puff Q4H PRN INH Shortness of Breath 01/08/20 16:15 04/06/20 20:14 Apixaban (Eliquis) 2.5 mg DAILY ORAL 01/08/20 15:18 04/07/20 15:17 01/10/20 08:55 Diltiazem HCl (Cardizem CD) 120 mg DAILY ORAL 01/09/20 09:00 02/07/20 08:59 01/10/20 08:55 Docusate Sodium (Colace) 100 mg TWICE A DAY ORAL 01/08/20 18:00 02/06/20 17:59 01/09/20 08:51 Furosemide (Lasix) 40 mg BID ORAL 01/09/20 21:00 02/08/20 20:59 01/10/20 08:55 Magnesium Hydroxide (Mom) 30 ml HSPRN PRN ORAL Constipation 01/08/20 16:00 02/06/20 15:59 Metoclopramide HCl (Reglan) 5 mg Q6H PRN ORAL Nausea & Vomiting 01/08/20 16:00 02/06/20 15:59 Metolazone (Zaroxolyn) 5 mg BID ORAL 01/08/20 18:00 02/06/20 17:59 01/10/20 08:55 Midodrine (Pro-Amatine) 5 mg TID ORAL 01/08/20 18:00 04/06/20 17:59 01/10/20 12:55 Multivitamins (Multivitamins) 1 tab DAILY ORAL 01/09/20 09:00 02/07/20 08:59 01/10/20 08:55 Spironolactone (Aldactone) 25 mg DAILY ORAL 01/09/20 09:00 02/07/20 08:59 01/10/20 08:55 Rajesh Green MD January 10, 2020 13:06
[2020-01-10 16:00] VITALS: BP 111/66
[2020-01-10 20:00] VITALS: BP 115/77
--- NOTE | 2020-01-10 20:22 | General Progress Note ---
Assessment/Plan Problem List: (1) Recurrent right pleural effusion ICD Codes: J90 - Pleural effusion, not elsewhere classified SNOMED: 99198320, [id number] Status: progressing Assessment/Plan: azotemia improving afebrile vitals stable pleural effusion pna covid test Subjective ROS Limited/Unobtainable: Yes Allergies: Coded Allergies: No Known Allergies (Unverified , 01/07/20) Objective Last 24 Hour Vital Signs Date Time Temp Pulse Resp B/P (MAP) Pulse Ox O2 Delivery O2 Flow Rate FiO2 01/10/20 16:00 75 01/10/20 16:00 97.7 82 18 111/66 (81) 97 01/10/20 12:00 97.3 93 18 101/67 (78) 92 01/10/20 12:00 83 01/10/20 09:00 83 01/10/20 09:00 Nasal Cannula 3.0 01/10/20 08:55 83 106/66 01/10/20 08:00 98.1 83 18 106/66 (79) 93 01/10/20 04:00 98.4 90 20 110/70 (83) 98 01/10/20 04:00 85 01/10/20 00:00 103 01/10/20 00:00 97.8 98 20 106/63 (77) 100 01/09/20 21:00 Room Air Intake and Output 01/09/20 01/10/20 19:00 07:00 Output Total 250 ml 1 ml Balance -250 ml -1 ml Output Urine Total 250 ml Stool Total 1 ml # Voids 1 1 # Bowel Movements 1 Height (Feet): 5 Height (Inches): 2.00 Weight (Pounds): 133 Cardiovascular: normal rate Respiratory/Chest: lungs clear Stone Locke MD January 10, 2020 20:22
--- NOTE | 2020-01-10 22:55 | Cardiac Electrophysiology PN ---
Assessment/Plan Assessment/Plan 1. Right pleural effusion. Patient may need repeat thoracentesis. Echocardiogram EF 55% Decrease LAsix to 40 po daily 2. History of congestive heart failure. EF 55% Continue Lasix 40 mg po daily, aldactone and Zaroxoline 3. Paroxysmal atrial fibrillation, on Cardizem CD 120 mg daily, Eliquis 2.5 mg b.i.d. . 4, Recurrent nonsustained VT 9 and 12 beats. Nl EF. Stress test after Covid negative 5. Severe bilateral lower extremity edema, on Zaroxolyn, Aldactone, and Lasix. 6. Hypertension. Continue Cardizem, Lasix, and Aldactone. 7. History of COPD and severe pulmonary hypertension PAP 145 8. Chronic kidney disease. 9. Cor pulmonale. SAM RN Subjective Subjective Had 9 beats of VT 2 days ago and another 12 beats today. Echo EF 55 but severe pulmonary HTN of 148?! On 3 liter NC. Objective Last 24 Hour Vital Signs Date Time Temp Pulse Resp B/P (MAP) Pulse Ox O2 Delivery O2 Flow Rate FiO2 01/10/20 16:00 75 01/10/20 16:00 97.7 82 18 111/66 (81) 97 01/10/20 12:00 97.3 93 18 101/67 (78) 92 01/10/20 12:00 83 01/10/20 09:00 83 01/10/20 09:00 Nasal Cannula 3.0 01/10/20 08:55 83 106/66 01/10/20 08:00 98.1 83 18 106/66 (79) 93 01/10/20 04:00 98.4 90 20 110/70 (83) 98 01/10/20 04:00 85 01/10/20 00:00 103 01/10/20 00:00 97.8 98 20 106/63 (77) 100 Intake and Output 01/09/20 01/10/20 19:00 07:00 Output Total 250 ml 1 ml Balance -250 ml -1 ml Output Urine Total 250 ml Stool Total 1 ml # Voids 1 1 # Bowel Movements 1 Objective HEAD AND NECK: Positive JVD. LUNGS: Coarse rhonchi. CARDIOVASCULAR: Regular S1 and S2 with no gallop or murmur. ABDOMEN: Soft. EXTREMITIES: Bilateral 2+ pitting edema. Christiano Barney MD January 10, 2020 22:55
[2020-01-11] VITALS: BP 110/64
[2020-01-11 04:00] VITALS: BP 110/66
[2020-01-11 08:00] VITALS: BP 109/68
[2020-01-11] MEDS: Spironolactone 25mg tab ORAL SCH (09:21)
[2020-01-11] MEDS: Eliquis 2.5mg tablet ORAL SCH ×2 (09:21→18:39)
[2020-01-11] MEDS: Docusate 100mg cap ORAL SCH ×2 (09:21→18:00)
[2020-01-11] MEDS: Furosemide 40mg tab ORAL SCH ×2 (09:22→18:40)
[2020-01-11] MEDS: dilTIAZem HCl CD 120mg cap ORAL SCH (09:23)
[2020-01-11 10:00] LABS: ANION GAP 7 mmol/L (5-15); BLOOD UREA NITROGEN 46 mg/dL (7-18); CALCIUM 7.9 MG/DL (8.5-10.1); CARBON DIOXIDE 29 MMOL/L (21-32); CHLORIDE 106 MMOL/L (98-107); CREATININE 1.6 MG/DL (0.55-1.30); POTASSIUM 4.8 MMOL/L (3.5-5.1); SODIUM 142 MMOL/L (136-145)
--- NOTE | 2020-01-11 10:13 | Infectious Diseases Prog Note ---
Assessment/Plan Assessment/Plan IMPRESSION: Pleural effusion congestive heart failure. NEGATIVE COVID-19 x 1 chronic kidney disease, valvular heart disease with aortic stenosis. COPD, Anemia, Atrial fibrillation. VRE carrier RECOMMENDATION: Observe off antibiotic Repeat COVID19 test Discontinue Shelley catheter Case was D/W RN Subjective ROS Limited/Unobtainable: No Constitutional: Reports: no symptoms Respiratory: Reports: no symptoms Cardiovascular: Reports: dyspnea on exertion Gastrointestinal/Abdominal: Reports: no symptoms Genitourinary: Reports: other - leaking Shelley catheter Allergies: Coded Allergies: No Known Allergies (Unverified , 01/07/20) Objective Vital Signs Last 24 Hour Vital Signs Date Time Temp Pulse Resp B/P (MAP) Pulse Ox O2 Delivery O2 Flow Rate FiO2 01/11/20 09:23 80 109/68 01/11/20 08:00 97.5 80 20 109/68 (82) 96 01/11/20 04:00 76 01/11/20 04:00 97.7 76 20 110/66 (81) 97 01/11/20 00:00 91 01/11/20 00:00 97.4 88 20 110/64 (79) 96 01/10/20 21:00 Nasal Cannula 3.0 01/10/20 20:00 82 01/10/20 20:00 97.7 85 19 115/77 (90) 94 01/10/20 16:00 75 01/10/20 16:00 97.7 82 18 111/66 (81) 97 01/10/20 12:00 97.3 93 18 101/67 (78) 92 01/10/20 12:00 83 Height (Feet): 5 Height (Inches): 2.00 Weight (Pounds): 133 HEENT: mucous membranes moist Respiratory/Chest: other - oxygen by nasal cannula Cardiovascular: normal rate Abdomen: soft, non tender Extremities: other - edema of legs Neurologic/Psychiatric: alert, oriented x 3, responsive Laboratory Tests Test 01/11/20 08:00 Sodium Level 142 MMOL/L (136-145) Potassium Level 4.8 MMOL/L (3.5-5.1) Chloride Level 106 MMOL/L (98-107) Carbon Dioxide Level 29 MMOL/L (21-32) Anion Gap 7 mmol/L (5-15) Blood Urea Nitrogen 46 mg/dL (7-18) H Creatinine 1.6 MG/DL (0.55-1.30) H Estimat Glomerular Filtration Rate 37.8 mL/min (>60) Glucose Level 85 MG/DL (74-106) Calcium Level 7.9 MG/DL (8.5-10.1) L Pro-B-Type Natriuretic Peptide 6079 pg/mL (0-125) H Current Medications Medications (Trade) Dose Ordered Sig/Heraclio Route PRN Reason Start Time Stop Time Status Last Admin Dose Admin Acetaminophen (Tylenol) 650 mg Q4H PRN ORAL Mild Pain (Pain Scale 1-3) 01/08/20 16:00 02/06/20 15:59 01/11/20 00:39 Albuterol Sulfate (Proventil MDI) 2 puff Q4H PRN INH Shortness of Breath 01/08/20 16:15 04/06/20 20:14 Apixaban (Eliquis) 2.5 mg BID ORAL 01/11/20 09:00 04/07/20 15:17 01/11/20 09:21 Diltiazem HCl (Cardizem CD) 120 mg DAILY ORAL 01/09/20 09:00 02/07/20 08:59 01/11/20 09:23 Docusate Sodium (Colace) 100 mg TWICE A DAY ORAL 01/08/20 18:00 02/06/20 17:59 01/11/20 09:21 Furosemide (Lasix) 40 mg BID ORAL 01/09/20 21:00 02/08/20 20:59 01/11/20 09:22 Magnesium Hydroxide (Mom) 30 ml HSPRN PRN ORAL Constipation 01/08/20 16:00 02/06/20 15:59 Metoclopramide HCl (Reglan) 5 mg Q6H PRN ORAL Nausea & Vomiting 01/08/20 16:00 02/06/20 15:59 Metolazone (Zaroxolyn) 5 mg BID ORAL 01/08/20 18:00 02/06/20 17:59 01/11/20 09:22 Midodrine (Pro-Amatine) 5 mg TID ORAL 01/08/20 18:00 04/06/20 17:59 01/11/20 09:22 Multivitamins (Multivitamins) 1 tab DAILY ORAL 01/09/20 09:00 02/07/20 08:59 01/11/20 09:22 Spironolactone (Aldactone) 25 mg DAILY ORAL 01/09/20 09:00 02/07/20 08:59 01/11/20 09:21 Rajesh Green MD January 11, 2020 10:13
--- NOTE | 2020-01-11 10:54 | Hematology/Onc Progress Note ---
Assessment/Plan Assessment/Plan Assessment/Plan # Hypercoagulable disorder -- with Paroxysmal atrial fibrillation, on Cardizem CD 120 mg daily, --> per cards, on Eliquis 2.5 mg b.i.d. dosing. --> ok to continue, no bleeding # Anemia of chronic disease due to underlying chronic medical issues, multifactorial v Gi bleed --> Anemia workup has been ordered, rule out gi bleed --> No evidence of hemolysis is noted, peripheral smear has been reviewed. --> Hgb goal >7. Transfuse prn. --> Epogen or iron at this time is not particularly indicated --> Medications have been reviewed --> low threshold for gi evaluation in case has occult + # Right pleural effusion. --> Patient may need repeat thoracentesis. Echocardiogram EF 55% She is also on Lasix IV daily. --> as per pulm --> cyto pending # History of congestive heart failure. EF 55% --> diuresis as per cards --> effusions noted # Severe bilateral lower extremity edema, on Zaroxolyn, Aldactone, and Lasix. --> per cards recs # Hypertension. Continue Cardizem, Lasix, and Aldactone. # History of COPD and sevre pulmonary hypertension PAP 145 # TERRI on Chronic kidney disease. # Cor pulmonale. # Dvt ppx eliquos The timing of this note does not necessarily reflect the time of the patient was seen. Greatly appreciate consultation. Subjective HEENT: Denies: no symptoms, eye pain, blurred vision, tearing, double vision, ear pain, ear discharge, nose pain, nose congestion, throat pain, throat swelling, mouth pain, mouth swelling, other Cardiovascular: Denies: no symptoms, chest pain, edema, irregular heart rate, lightheadedness, palpitations, syncope, other Respiratory: Denies: no symptoms, cough, shortness of breath, SOB with excertion, SOB at rest, sputum, wheezing, other Genitourinary: Denies: no symptoms, burning, discharge, frequency, flank pain, hematuria, incontinence, pain, urgency, other Neurologic/Psychiatric: Denies: no symptoms, anxiety, depressed, emotional problems, headache, numbness, paresthesia, pre-existing deficit, seizure, tingling, tremors, weakness, other Endocrine: Denies: no symptoms, excessive sweating, flushing, intolerance to cold, intolerance to heat, increased hunger, increased thirst, increased urine, unexplained weight gain, unexplained weight loss, other Allergies: Coded Allergies: No Known Allergies (Unverified , 01/07/20) Subjective 01/10 no major changes, no bleeding, cbc ordered, on 3lnc Objective Objective Current Medications Medications (Trade) Dose Ordered Sig/Heraclio Route PRN Reason Start Time Stop Time Status Last Admin Dose Admin Acetaminophen (Tylenol) 650 mg Q4H PRN ORAL Mild Pain (Pain Scale 1-3) 01/08/20 16:00 02/06/20 15:59 01/11/20 00:39 Albuterol Sulfate (Proventil MDI) 2 puff Q4H PRN INH Shortness of Breath 01/08/20 16:15 04/06/20 20:14 Apixaban (Eliquis) 2.5 mg BID ORAL 01/11/20 09:00 04/07/20 15:17 01/11/20 09:21 Diltiazem HCl (Cardizem CD) 120 mg DAILY ORAL 01/09/20 09:00 02/07/20 08:59 01/11/20 09:23 Docusate Sodium (Colace) 100 mg TWICE A DAY ORAL 01/08/20 18:00 02/06/20 17:59 01/11/20 09:21 Furosemide (Lasix) 40 mg BID ORAL 01/09/20 21:00 02/08/20 20:59 01/11/20 09:22 Magnesium Hydroxide (Mom) 30 ml HSPRN PRN ORAL Constipation 01/08/20 16:00 02/06/20 15:59 Metoclopramide HCl (Reglan) 5 mg Q6H PRN ORAL Nausea & Vomiting 01/08/20 16:00 02/06/20 15:59 Metolazone (Zaroxolyn) 5 mg BID ORAL 01/08/20 18:00 02/06/20 17:59 01/11/20 09:22 Midodrine (Pro-Amatine) 5 mg TID ORAL 01/08/20 18:00 04/06/20 17:59 01/11/20 09:22 Multivitamins (Multivitamins) 1 tab DAILY ORAL 01/09/20 09:00 02/07/20 08:59 01/11/20 09:22 Spironolactone (Aldactone) 25 mg DAILY ORAL 01/09/20 09:00 02/07/20 08:59 01/11/20 09:21 Last 24 Hour Vital Signs Date Time Temp Pulse Resp B/P (MAP) Pulse Ox O2 Delivery O2 Flow Rate FiO2 01/11/20 09:23 80 109/68 01/11/20 08:00 78 01/11/20 08:00 97.5 80 20 109/68 (82) 96 01/11/20 04:00 76 01/11/20 04:00 97.7 76 20 110/66 (81) 97 01/11/20 00:00 91 01/11/20 00:00 97.4 88 20 110/64 (79) 96 01/10/20 21:00 Nasal Cannula 3.0 01/10/20 20:00 82 01/10/20 20:00 97.7 85 19 115/77 (90) 94 01/10/20 16:00 75 01/10/20 16:00 97.7 82 18 111/66 (81) 97 01/10/20 12:00 97.3 93 18 101/67 (78) 92 01/10/20 12:00 83 01/10/20 09:00 83 01/10/20 09:00 Nasal Cannula 3.0 01/10/20 08:55 83 106/66 01/10/20 08:00 98.1 83 18 106/66 (79) 93 01/10/20 04:00 98.4 90 20 110/70 (83) 98 01/10/20 04:00 85 01/10/20 00:00 103 01/10/20 00:00 97.8 98 20 106/63 (77) 100 01/09/20 21:00 Room Air 01/09/20 20:00 97.7 91 19 112/67 (82) 97 01/09/20 20:00 92 01/09/20 16:00 97.3 71 20 114/83 (93) 98 01/09/20 16:00 84 01/09/20 12:00 98.1 85 20 114/71 (85) 100 Intake and Output 01/10/20 01/11/20 19:00 07:00 Intake Total 720 ml Output Total 500 ml 1200 ml Balance 220 ml -1200 ml Intake Oral 720 ml Output Urine Total 500 ml 1200 ml # Bowel Movements 1 Labs Test 01/09/20 04:45 01/11/20 08:00 Troponin I 0.023 ng/mL (0.000-0.056) Sodium Level 142 MMOL/L (136-145) Potassium Level 4.8 MMOL/L (3.5-5.1) Chloride Level 106 MMOL/L (98-107) Carbon Dioxide Level 29 MMOL/L (21-32) Anion Gap 7 mmol/L (5-15) Blood Urea Nitrogen 46 mg/dL (7-18) Creatinine 1.6 MG/DL (0.55-1.30) Estimat Glomerular Filtration Rate 37.8 mL/min (>60) Glucose Level 85 MG/DL (74-106) Calcium Level 7.9 MG/DL (8.5-10.1) Pro-B-Type Natriuretic Peptide 6079 pg/mL (0-125) Height (Feet): 5 Height (Inches): 2.00 Weight (Pounds): 133 Objective Vital Signs reviewed, normal General Appearance: well appearing, no apparent distress Heent nc, at Neck: full range of motion, supple Respiratory: no respiratory distress, no wheezing, 3l nc- Right lung base low bss Cardiovascular normal peripheral pulses, no murmur, tachycardia Gastrointestinal: non tender, soft, non-distended, no guarding Musculoskeletal: other - Bilateral lower extremity edema 2+ Neurologic: alert, oriented x3, no focal defects Skin: normal color, warm/dry Davin Gregg MD January 11, 2020 10:54
[2020-01-11 12:00] VITALS: BP 106/61
--- NOTE | 2020-01-11 12:54 | Cardiac Electrophysiology PN ---
Assessment/Plan Assessment/Plan 1. Right pleural effusion. Echocardiogram EF 55% On Lasix 40 po bid Patient may need repeat thoracentesis. 2. History of congestive heart failure. EF 55% Continue Lasix 40 mg po bid, Aldactone 25 and Zaroxolyn 3. Paroxysmal atrial fibrillation, on Cardizem CD 120 mg daily, Eliquis 2.5 mg b.i.d. . 4, Recurrent nonsustained VT 9 and 12 beats. Nl EF. Stress test after Covid negative 5. Severe bilateral lower extremity edema, on Zaroxolyn, Aldactone, and Lasix. 6. Hypertension. Continue Cardizem, Lasix, and Aldactone. 7. History of COPD and severe pulmonary hypertension PAP 145 8. Chronic kidney disease. 9. Cor pulmonale. SAM RN Subjective Subjective Had 9 beats of VT on 01/08/2020 and another 12 beats of VT on 01/10/20. Echo EF 55 but severe pulmonary HTN of 148?! On 3 liter NC. Objective Last 24 Hour Vital Signs Date Time Temp Pulse Resp B/P (MAP) Pulse Ox O2 Delivery O2 Flow Rate FiO2 01/11/20 09:23 80 109/68 01/11/20 09:00 Nasal Cannula 3.0 01/11/20 08:00 78 01/11/20 08:00 97.5 80 20 109/68 (82) 96 01/11/20 04:00 76 01/11/20 04:00 97.7 76 20 110/66 (81) 97 01/11/20 00:00 91 01/11/20 00:00 97.4 88 20 110/64 (79) 96 01/10/20 21:00 Nasal Cannula 3.0 01/10/20 20:00 82 01/10/20 20:00 97.7 85 19 115/77 (90) 94 01/10/20 16:00 75 01/10/20 16:00 97.7 82 18 111/66 (81) 97 Intake and Output 01/10/20 01/11/20 19:00 07:00 Intake Total 720 ml Output Total 500 ml 1200 ml Balance 220 ml -1200 ml Intake Oral 720 ml Output Urine Total 500 ml 1200 ml # Bowel Movements 1 Laboratory Tests Test 01/11/20 08:00 Sodium Level 142 MMOL/L (136-145) Potassium Level 4.8 MMOL/L (3.5-5.1) Chloride Level 106 MMOL/L (98-107) Carbon Dioxide Level 29 MMOL/L (21-32) Anion Gap 7 mmol/L (5-15) Blood Urea Nitrogen 46 mg/dL (7-18) H Creatinine 1.6 MG/DL (0.55-1.30) H Estimat Glomerular Filtration Rate 37.8 mL/min (>60) Glucose Level 85 MG/DL (74-106) Calcium Level 7.9 MG/DL (8.5-10.1) L Pro-B-Type Natriuretic Peptide 6079 pg/mL (0-125) H Objective HEAD AND NECK: Positive JVD. LUNGS: Coarse rhonchi. CARDIOVASCULAR: Regular S1 and S2 with no gallop or murmur. ABDOMEN: Soft. EXTREMITIES: Bilateral 2+ pitting edema. Christiano Barney MD January 11, 2020 12:54
--- NOTE | 2020-01-11 14:05 | Pulmonology Progress Note ---
Subjective ROS Limited/Unobtainable: No Interval Events: None new Constitutional: Reports: no symptoms HEENT: Repors: no symptoms Respiratory: Reports: no symptoms Cardiovascular: Reports: no symptoms Gastrointestinal/Abdominal: Reports: no symptoms Genitourinary: Reports: no symptoms Allergies: Coded Allergies: No Known Allergies (Unverified , 01/07/20) Objective Last 24 Hour Vital Signs Date Time Temp Pulse Resp B/P (MAP) Pulse Ox O2 Delivery O2 Flow Rate FiO2 01/11/20 12:00 97.0 85 22 106/61 (76) 94 01/11/20 09:23 80 109/68 01/11/20 09:00 Nasal Cannula 3.0 01/11/20 08:00 78 01/11/20 08:00 97.5 80 20 109/68 (82) 96 01/11/20 04:00 76 01/11/20 04:00 97.7 76 20 110/66 (81) 97 01/11/20 00:00 91 01/11/20 00:00 97.4 88 20 110/64 (79) 96 01/10/20 21:00 Nasal Cannula 3.0 01/10/20 20:00 82 01/10/20 20:00 97.7 85 19 115/77 (90) 94 01/10/20 16:00 75 01/10/20 16:00 97.7 82 18 111/66 (81) 97 Intake and Output 01/10/20 01/11/20 19:00 07:00 Intake Total 720 ml Output Total 500 ml 1200 ml Balance 220 ml -1200 ml Intake Oral 720 ml Output Urine Total 500 ml 1200 ml # Bowel Movements 1 General Appearance: no acute distress HEENT: mucous membranes moist Respiratory/Chest: chest wall non-tender, lungs clear Cardiovascular: normal peripheral pulses, normal rate Abdomen: soft, non tender Extremities: other - edema of legs Neurologic/Psychiatric: alert, oriented x 3, responsive Laboratory Tests 01/11/20 08:00: Sodium Level 142, Potassium Level 4.8, Chloride Level 106, Carbon Dioxide Level 29, Anion Gap 7, Blood Urea Nitrogen 46H, Creatinine 1.6H, Estimat Glomerular Filtration Rate 37.8, Glucose Level 85, Calcium Level 7.9L, Pro-B-Type Natriuretic Peptide 6079H Current Medications Medications (Trade) Dose Ordered Sig/Heraclio Route PRN Reason Start Time Stop Time Status Last Admin Dose Admin Acetaminophen (Tylenol) 650 mg Q4H PRN ORAL Mild Pain (Pain Scale 1-3) 01/08/20 16:00 02/06/20 15:59 01/11/20 00:39 Albuterol Sulfate (Proventil MDI) 2 puff Q4H PRN INH Shortness of Breath 01/08/20 16:15 04/06/20 20:14 Apixaban (Eliquis) 2.5 mg BID ORAL 01/11/20 09:00 04/07/20 15:17 01/11/20 09:21 Diltiazem HCl (Cardizem CD) 120 mg DAILY ORAL 01/09/20 09:00 02/07/20 08:59 01/11/20 09:23 Docusate Sodium (Colace) 100 mg TWICE A DAY ORAL 01/08/20 18:00 02/06/20 17:59 01/11/20 09:21 Furosemide (Lasix) 40 mg BID ORAL 01/09/20 21:00 02/08/20 20:59 01/11/20 09:22 Magnesium Hydroxide (Mom) 30 ml HSPRN PRN ORAL Constipation 01/08/20 16:00 02/06/20 15:59 Metoclopramide HCl (Reglan) 5 mg Q6H PRN ORAL Nausea & Vomiting 01/08/20 16:00 02/06/20 15:59 Metolazone (Zaroxolyn) 5 mg BID ORAL 01/08/20 18:00 02/06/20 17:59 01/11/20 09:22 Midodrine (Pro-Amatine) 5 mg TID ORAL 01/08/20 18:00 04/06/20 17:59 01/11/20 13:24 Multivitamins (Multivitamins) 1 tab DAILY ORAL 01/09/20 09:00 02/07/20 08:59 01/11/20 09:22 Spironolactone (Aldactone) 25 mg DAILY ORAL 01/09/20 09:00 02/07/20 08:59 01/11/20 09:21 Assessment/Plan Assessment/Plan IMPRESSION: 1. Bilateral pleural effusions, right greater than left. 2. correction resident. 3. CHF. 4. CKD. DISCUSSION: COVID 19 negative x 1 She does not appear to be septic or infected. Await second pcr COVID 19 Will request CXR I will follow carefully. Melanie Bonner Omar Syed MD January 11, 2020 14:05
[2020-01-11] MEDS ORDERED: Lexiscan 0.4mg/5ml syringe IV PRN (14:47)
[2020-01-11 16:00] VITALS: BP 110/75
--- NOTE | 2020-01-11 17:29 | Diagnostic Imaging Report ---
Indication: Cough Technique: One view of the chest Comparison: 01/07/2020 Findings: There is a moderate to large right pleural effusion. There is a small left pleural effusion. There is bilateral interstitial and airspace edema. The heart is enlarged. Impression: Unchanged, over 4 days, findings as above.
[2020-01-11 20:00] VITALS: BP 111/76
--- NOTE | 2020-01-11 21:21 | General Progress Note ---
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 pleural effusion pna covid test is negative Subjective ROS Limited/Unobtainable: Yes Allergies: Coded Allergies: No Known Allergies (Unverified , 01/07/20) Objective Last 24 Hour Vital Signs Date Time Temp Pulse Resp B/P (MAP) Pulse Ox O2 Delivery O2 Flow Rate FiO2 01/11/20 16:00 105 01/11/20 16:00 97.2 96 20 110/75 (87) 96 01/11/20 12:00 97.0 85 22 106/61 (76) 94 01/11/20 12:00 85 01/11/20 09:23 80 109/68 01/11/20 09:00 Nasal Cannula 3.0 01/11/20 08:00 78 01/11/20 08:00 97.5 80 20 109/68 (82) 96 01/11/20 04:00 76 01/11/20 04:00 97.7 76 20 110/66 (81) 97 01/11/20 00:00 91 01/11/20 00:00 97.4 88 20 110/64 (79) 96 Intake and Output 01/10/20 01/11/20 19:00 07:00 Intake Total 720 ml Output Total 500 ml 1200 ml Balance 220 ml -1200 ml Intake Oral 720 ml Output Urine Total 500 ml 1200 ml # Bowel Movements 1 Laboratory Tests 01/11/20 08:00: Sodium Level 142, Potassium Level 4.8, Chloride Level 106, Carbon Dioxide Level 29, Anion Gap 7, Blood Urea Nitrogen 46H, Creatinine 1.6H, Estimat Glomerular Filtration Rate 37.8, Glucose Level 85, Calcium Level 7.9L, Pro-B-Type Natriuretic Peptide 6079H Height (Feet): 5 Height (Inches): 2.00 Weight (Pounds): 133 Stone Locke MD January 11, 2020 21:20
[2020-01-12] VITALS: BP 100/70
[2020-01-12 04:00] VITALS: BP 107/79
[2020-01-12 08:00] VITALS: BP 98/61
[2020-01-12] MEDS: dilTIAZem HCl CD 120mg cap ORAL SCH (08:34)
[2020-01-12] MEDS: Docusate 100mg cap ORAL SCH (08:34)
[2020-01-12] MEDS: Eliquis 2.5mg tablet ORAL SCH (08:35)
[2020-01-12] MEDS: Spironolactone 25mg tab ORAL SCH (08:36)
--- NOTE | 2020-01-12 08:52 | Hematology/Onc Progress Note ---
Assessment/Plan Assessment/Plan Assessment/Plan # Hypercoagulable disorder -- with Paroxysmal atrial fibrillation, on Cardizem CD 120 mg daily, --> per cards, on Eliquis 2.5 mg b.i.d. dosing. --> ok to continue, no bleeding # Anemia of chronic disease due to underlying chronic medical issues, multifactorial v Gi bleed --> Anemia workup has been ordered, rule out gi bleed --> No evidence of hemolysis is noted, peripheral smear has been reviewed. --> Hgb goal >7. Transfuse prn. --> Epogen or iron at this time is not particularly indicated --> Medications have been reviewed --> low threshold for gi evaluation in case has occult + # Right pleural effusion. --> Patient may need repeat thoracentesis. Echocardiogram EF 55% She is also on Lasix IV daily. --> as per pulm --> cyto pending --> 01/10 cxr: unchanged over 4 days # History of congestive heart failure. EF 55% --> diuresis as per cards --> effusions noted # Severe bilateral lower extremity edema, on Zaroxolyn, Aldactone, and Lasix. --> per cards recs # Hypertension. Continue Cardizem, Lasix, and Aldactone. # History of COPD and sevre pulmonary hypertension PAP 145 # TERRI on Chronic kidney disease. # Cor pulmonale. # Dvt ppx eliquos The timing of this note does not necessarily reflect the time of the patient was seen. Greatly appreciate consultation. Subjective Allergies: Coded Allergies: No Known Allergies (Unverified , 01/07/20) Subjective 01/10 no major changes, no bleeding, cbc ordered, on 3lnc 01/11 covid 19 negative x2, cxr unchanged, no acute distress Objective Objective Current Medications Medications (Trade) Dose Ordered Sig/Heraclio Route PRN Reason Start Time Stop Time Status Last Admin Dose Admin Acetaminophen (Tylenol) 650 mg Q4H PRN ORAL Mild Pain (Pain Scale 1-3) 01/08/20 16:00 02/06/20 15:59 01/11/20 00:39 Albuterol Sulfate (Proventil MDI) 2 puff Q4H PRN INH Shortness of Breath 01/08/20 16:15 04/06/20 20:14 Apixaban (Eliquis) 2.5 mg BID ORAL 5/11/20 09:00 04/07/20 15:17 01/11/20 18:39 Diltiazem HCl (Cardizem CD) 120 mg DAILY ORAL 01/09/20 09:00 02/07/20 08:59 01/11/20 09:23 Docusate Sodium (Colace) 100 mg TWICE A DAY ORAL 01/08/20 18:00 02/06/20 17:59 01/11/20 09:21 Furosemide (Lasix) 40 mg BID ORAL 01/09/20 21:00 02/08/20 20:59 01/11/20 18:40 Magnesium Hydroxide (Mom) 30 ml HSPRN PRN ORAL Constipation 01/08/20 16:00 02/06/20 15:59 Metoclopramide HCl (Reglan) 5 mg Q6H PRN ORAL Nausea & Vomiting 01/08/20 16:00 02/06/20 15:59 Metolazone (Zaroxolyn) 5 mg BID ORAL 01/08/20 18:00 02/06/20 17:59 01/11/20 18:39 Midodrine (Pro-Amatine) 5 mg TID ORAL 01/08/20 18:00 04/06/20 17:59 01/11/20 18:39 Multivitamins (Multivitamins) 1 tab DAILY ORAL 01/09/20 09:00 02/07/20 08:59 01/11/20 09:22 Regadenoson (Lexiscan) 0.4 mg ONCE PRN IV cardiology 01/11/20 14:47 01/13/20 23:59 Spironolactone (Aldactone) 25 mg DAILY ORAL 01/09/20 09:00 02/07/20 08:59 01/11/20 09:21 Last 24 Hour Vital Signs Date Time Temp Pulse Resp B/P (MAP) Pulse Ox O2 Delivery O2 Flow Rate FiO2 01/12/20 08:34 98 98/61 01/12/20 08:00 97.3 98 20 98/61 (73) 95 01/12/20 04:00 97.4 95 18 107/79 (88) 96 01/12/20 04:00 90 01/12/20 00:00 97.9 91 18 100/70 (80) 98 01/12/20 00:00 94 01/11/20 21:00 Nasal Cannula 0.5 01/11/20 20:00 97.5 92 18 111/76 (88) 96 01/11/20 20:00 98 01/11/20 16:00 105 01/11/20 16:00 97.2 96 20 110/75 (87) 96 01/11/20 12:00 97.0 85 22 106/61 (76) 94 01/11/20 12:00 85 01/11/20 09:23 80 109/68 01/11/20 09:00 Nasal Cannula 3.0 01/11/20 08:00 78 01/11/20 08:00 97.5 80 20 109/68 (82) 96 01/11/20 04:00 76 01/11/20 04:00 97.7 76 20 110/66 (81) 97 01/11/20 00:00 91 01/11/20 00:00 97.4 88 20 110/64 (79) 96 01/10/20 21:00 Nasal Cannula 3.0 01/10/20 20:00 82 01/10/20 20:00 97.7 85 19 115/77 (90) 94 01/10/20 16:00 75 01/10/20 16:00 97.7 82 18 111/66 (81) 97 01/10/20 12:00 97.3 93 18 101/67 (78) 92 01/10/20 12:00 83 01/10/20 09:00 83 01/10/20 09:00 Nasal Cannula 3.0 01/10/20 08:55 83 106/66 Intake and Output 01/11/20 01/12/20 19:00 07:00 Intake Total 120 ml Balance 120 ml Intake Oral 120 ml # Voids 3 1 Labs Test 01/11/20 08:00 Sodium Level 142 MMOL/L (136-145) Potassium Level 4.8 MMOL/L (3.5-5.1) Chloride Level 106 MMOL/L (98-107) Carbon Dioxide Level 29 MMOL/L (21-32) Anion Gap 7 mmol/L (5-15) Blood Urea Nitrogen 46 mg/dL (7-18) Creatinine 1.6 MG/DL (0.55-1.30) Estimat Glomerular Filtration Rate 37.8 mL/min (>60) Glucose Level 85 MG/DL (74-106) Calcium Level 7.9 MG/DL (8.5-10.1) Pro-B-Type Natriuretic Peptide 6079 pg/mL (0-125) Height (Feet): 5 Height (Inches): 2.00 Weight (Pounds): 133 Objective Vital Signs reviewed, normal General Appearance: well appearing, no apparent distress Heent nc, at Neck: full range of motion, supple Respiratory: no respiratory distress, no wheezing, 3l nc- Right lung base low bss Cardiovascular normal peripheral pulses, no murmur, tachycardia Gastrointestinal: non tender, soft, non-distended, no guarding Musculoskeletal: other - Bilateral lower extremity edema 2+ Neurologic: alert, oriented x3, no focal defects Skin: normal color, warm/dry Davin Gregg MD January 12, 2020 08:52
[2020-01-12] MEDS: Furosemide 40mg tab ORAL SCH (09:00)
[2020-01-12 11:10] LABS: BASOPHILS % (AUTO) 1.6 % (0.0-2.0); EOSINOPHILS % (AUTO) 0.6 % (0.0-3.0); HEMATOCRIT 36.4 % (37.0-47.0); HEMOGLOBIN 12.2 G/DL (12.0-16.0); LYMPHOCYTES % (AUTO) 6.2 % (20.0-45.0); MEAN CORPUSCULAR VOLUME 87 FL (80-99); MONOCYTES % (AUTO) 7.8 % (1.0-10.0); NEUTROPHILS % (AUTO) 83.7 % (45.0-75.0); PLATELET COUNT 247 K/UL (150-450); RED CELL DISTRIBUTION WIDTH 16.8 % (11.6-14.8); WHITE BLOOD COUNT 10.6 K/UL (4.8-10.8)
--- NOTE | 2020-01-12 11:28 | Cardiac Electrophysiology PN ---
Assessment/Plan Assessment/Plan 1. Right pleural effusion. Echocardiogram EF 55% On 3 diuretics Patient may need repeat thoracentesis. 2. Corpulmonale . EF 55% Continue Lasix 40 mg po bid, Aldactone 25 and Zaroxolyn 3. Paroxysmal atrial fibrillation, on Cardizem CD 120 mg daily, Eliquis 2.5 mg b.i.d. . 4, Recurrent nonsustained VT 9 and 12 beats. Nl EF. Stress test pending today 5. Severe bilateral lower extremity edema, on Zaroxolyn, Aldactone, and Lasix. 6. Hypertension. Continue Cardizem, Lasix, and Aldactone. 7. COPD and severe pulmonary hypertension PAP 145 8. Chronic kidney disease. DW RN Subjective Subjective Had 9 beats of VT on 01/08/2020 and another 12 beats of VT on 01/10/20. Echo EF 55 but severe pulmonary HTN of 148! On 3 liter NC In atrial fib with rate in 90s. Stress test pending today. Objective Last 24 Hour Vital Signs Date Time Temp Pulse Resp B/P (MAP) Pulse Ox O2 Delivery O2 Flow Rate FiO2 01/12/20 09:00 Nasal Cannula 0.5 01/12/20 08:34 98 98/61 01/12/20 08:00 97.3 98 20 98/61 (73) 95 01/12/20 07:48 100 01/12/20 04:00 97.4 95 18 107/79 (88) 96 01/12/20 04:00 90 01/12/20 00:00 97.9 91 18 100/70 (80) 98 01/12/20 00:00 94 01/11/20 21:00 Nasal Cannula 0.5 01/11/20 20:00 97.5 92 18 111/76 (88) 96 01/11/20 20:00 98 01/11/20 16:00 105 01/11/20 16:00 97.2 96 20 110/75 (87) 96 01/11/20 12:00 97.0 85 22 106/61 (76) 94 01/11/20 12:00 85 Intake and Output 01/11/20 01/12/20 19:00 07:00 Intake Total 120 ml Balance 120 ml Intake Oral 120 ml # Voids 3 1 Laboratory Tests Test 01/12/20 10:40 White Blood Count 10.6 K/UL (4.8-10.8) Red Blood Count 4.20 M/UL (4.20-5.40) Hemoglobin 12.2 G/DL (12.0-16.0) Hematocrit 36.4 % (37.0-47.0) L Mean Corpuscular Volume 87 FL (80-99) Mean Corpuscular Hemoglobin 29.2 PG (27.0-31.0) Mean Corpuscular Hemoglobin Concent 33.6 G/DL (32.0-36.0) Red Cell Distribution Width 16.8 % (11.6-14.8) H Platelet Count 247 K/UL (150-450) Mean Platelet Volume 5.8 FL (6.5-10.1) L Neutrophils (%) (Auto) 83.7 % (45.0-75.0) H Lymphocytes (%) (Auto) 6.2 % (20.0-45.0) L Monocytes (%) (Auto) 7.8 % (1.0-10.0) Eosinophils (%) (Auto) 0.6 % (0.0-3.0) Basophils (%) (Auto) 1.6 % (0.0-2.0) Microbiology Date/Time Source Procedure Growth Status 01/10/20 10:55 Nasopharynx Coronavirus COVID-19 PCR ([facility]) - Final Complete Objective HEAD AND NECK: Positive JVD. LUNGS: Coarse rhonchi and decreased BS CARDIOVASCULAR: Irregular S1 and S2 with no gallop or murmur. ABDOMEN: Soft. EXTREMITIES: Bilateral 2+ pitting edema. Christiano Barney MD January 12, 2020 11:28
--- NOTE | 2020-01-12 11:49 | Pulmonology Progress Note ---
Subjective ROS Limited/Unobtainable: Yes Interval Events: None new Constitutional: Reports: no symptoms HEENT: Repors: no symptoms Respiratory: Reports: no symptoms Cardiovascular: Reports: no symptoms Gastrointestinal/Abdominal: Reports: no symptoms Genitourinary: Reports: no symptoms Allergies: Coded Allergies: No Known Allergies (Unverified , 01/07/20) Objective Last 24 Hour Vital Signs Date Time Temp Pulse Resp B/P (MAP) Pulse Ox O2 Delivery O2 Flow Rate FiO2 01/12/20 09:00 Nasal Cannula 0.5 01/12/20 08:34 98 98/61 01/12/20 08:00 97.3 98 20 98/61 (73) 95 01/12/20 07:48 100 01/12/20 04:00 97.4 95 18 107/79 (88) 96 01/12/20 04:00 90 01/12/20 00:00 97.9 91 18 100/70 (80) 98 01/12/20 00:00 94 01/11/20 21:00 Nasal Cannula 0.5 01/11/20 20:00 97.5 92 18 111/76 (88) 96 01/11/20 20:00 98 01/11/20 16:00 105 01/11/20 16:00 97.2 96 20 110/75 (87) 96 01/11/20 12:00 97.0 85 22 106/61 (76) 94 01/11/20 12:00 85 Intake and Output 01/11/20 01/12/20 19:00 07:00 Intake Total 120 ml Balance 120 ml Intake Oral 120 ml # Voids 3 1 General Appearance: no acute distress HEENT: mucous membranes moist Respiratory/Chest: chest wall non-tender, lungs clear Cardiovascular: normal peripheral pulses, normal rate Abdomen: soft, non tender Extremities: other - edema of legs Neurologic/Psychiatric: alert, oriented x 3, responsive Microbiology Date/Time Source Procedure Growth Status 01/10/20 10:55 Nasopharynx Coronavirus COVID-19 PCR ([facility]) - Final Complete Laboratory Tests 01/12/20 10:40: White Blood Count 10.6, Red Blood Count 4.20, Hemoglobin 12.2, Hematocrit 36.4L , Mean Corpuscular Volume 87, Mean Corpuscular Hemoglobin 29.2, Mean Corpuscular Hemoglobin Concent 33.6, Red Cell Distribution Width 16.8H, Platelet Count 247, Mean Platelet Volume 5.8L, Neutrophils (%) (Auto) 83.7H, Lymphocytes (%) (Auto) 6.2L, Monocytes (%) (Auto) 7.8, Eosinophils (%) (Auto) 0.6, Basophils (%) (Auto) 1.6 Current Medications Medications (Trade) Dose Ordered Sig/Heraclio Route PRN Reason Start Time Stop Time Status Last Admin Dose Admin Acetaminophen (Tylenol) 650 mg Q4H PRN ORAL Mild Pain (Pain Scale 1-3) 01/08/20 16:00 02/06/20 15:59 01/11/20 00:39 Albuterol Sulfate (Proventil MDI) 2 puff Q4H PRN INH Shortness of Breath 01/08/20 16:15 04/06/20 20:14 Apixaban (Eliquis) 2.5 mg BID ORAL 01/11/20 09:00 04/07/20 15:17 01/11/20 18:39 Diltiazem HCl (Cardizem CD) 120 mg DAILY ORAL 01/09/20 09:00 02/07/20 08:59 01/11/20 09:23 Docusate Sodium (Colace) 100 mg TWICE A DAY ORAL 01/08/20 18:00 02/06/20 17:59 01/11/20 09:21 Furosemide (Lasix) 40 mg BID ORAL 01/09/20 21:00 02/08/20 20:59 01/11/20 18:40 Magnesium Hydroxide (Mom) 30 ml HSPRN PRN ORAL Constipation 01/08/20 16:00 02/06/20 15:59 Metoclopramide HCl (Reglan) 5 mg Q6H PRN ORAL Nausea & Vomiting 01/08/20 16:00 02/06/20 15:59 Metolazone (Zaroxolyn) 5 mg BID ORAL 01/08/20 18:00 02/06/20 17:59 01/11/20 18:39 Midodrine (Pro-Amatine) 5 mg TID ORAL 01/08/20 18:00 04/06/20 17:59 01/12/20 09:53 Multivitamins (Multivitamins) 1 tab DAILY ORAL 01/09/20 09:00 02/07/20 08:59 01/11/20 09:22 Regadenoson (Lexiscan) 0.4 mg ONCE PRN IV cardiology 01/11/20 14:47 01/13/20 23:59 Spironolactone (Aldactone) 25 mg DAILY ORAL 01/09/20 09:00 02/07/20 08:59 01/11/20 09:21 Assessment/Plan Assessment/Plan IMPRESSION: 1. Bilateral pleural effusions, right greater than left. 2. alf resident. 3. CHF. 4. CKD. DISCUSSION: COVID 19 negative x 1 She does not appear to be septic or infected. Negative second pcr COVID 19 Reviewed repeat CXR; left effusion better; right persists OK to dc back to SNF Melanie Bonner Omar Syed MD January 12, 2020 11:49
[2020-01-12 12:00] VITALS: BP 101/53
--- NOTE | 2020-01-12 13:12 | Infectious Diseases Prog Note ---
Assessment/Plan Assessment/Plan IMPRESSION: Pleural effusion congestive heart failure. NEGATIVE COVID-19 x 2 chronic kidney disease, valvular heart disease with aortic stenosis. COPD, Anemia, Atrial fibrillation. VRE carrier Pulmonary hypertension RECOMMENDATION: Observe off antibiotic Case was D/W RN Subjective ROS Limited/Unobtainable: No Constitutional: Denies: fever Respiratory: Reports: dry cough Cardiovascular: Reports: dyspnea on exertion Gastrointestinal/Abdominal: Reports: no symptoms Genitourinary: Reports: no symptoms Allergies: Coded Allergies: No Known Allergies (Unverified , 01/07/20) Objective Vital Signs Last 24 Hour Vital Signs Date Time Temp Pulse Resp B/P (MAP) Pulse Ox O2 Delivery O2 Flow Rate FiO2 01/12/20 12:00 97.7 90 19 101/53 (69) 100 01/12/20 11:41 108 01/12/20 09:00 Nasal Cannula 0.5 01/12/20 08:34 98 98/61 01/12/20 08:00 97.3 98 20 98/61 (73) 95 01/12/20 07:48 100 01/12/20 04:00 97.4 95 18 107/79 (88) 96 01/12/20 04:00 90 01/12/20 00:00 97.9 91 18 100/70 (80) 98 01/12/20 00:00 94 01/11/20 21:00 Nasal Cannula 0.5 01/11/20 20:00 97.5 92 18 111/76 (88) 96 01/11/20 20:00 98 01/11/20 16:00 105 01/11/20 16:00 97.2 96 20 110/75 (87) 96 Height (Feet): 5 Height (Inches): 2.00 Weight (Pounds): 133 HEENT: mucous membranes moist Respiratory/Chest: decreased breath sounds, other - oxygen by nasal cannula Cardiovascular: normal rate, irregularly irregular Abdomen: soft, non tender Extremities: other - legs edema Neurologic/Psychiatric: alert, oriented x 3, responsive Microbiology Date/Time Source Procedure Growth Status 01/10/20 10:55 Nasopharynx Coronavirus COVID-19 PCR ([facility]) - Final Complete Laboratory Tests Test 01/12/20 10:40 White Blood Count 10.6 K/UL (4.8-10.8) Red Blood Count 4.20 M/UL (4.20-5.40) Hemoglobin 12.2 G/DL (12.0-16.0) Hematocrit 36.4 % (37.0-47.0) L Mean Corpuscular Volume 87 FL (80-99) Mean Corpuscular Hemoglobin 29.2 PG (27.0-31.0) Mean Corpuscular Hemoglobin Concent 33.6 G/DL (32.0-36.0) Red Cell Distribution Width 16.8 % (11.6-14.8) H Platelet Count 247 K/UL (150-450) Mean Platelet Volume 5.8 FL (6.5-10.1) L Neutrophils (%) (Auto) 83.7 % (45.0-75.0) H Lymphocytes (%) (Auto) 6.2 % (20.0-45.0) L Monocytes (%) (Auto) 7.8 % (1.0-10.0) Eosinophils (%) (Auto) 0.6 % (0.0-3.0) Basophils (%) (Auto) 1.6 % (0.0-2.0) Current Medications Medications (Trade) Dose Ordered Sig/Heraclio Route PRN Reason Start Time Stop Time Status Last Admin Dose Admin Acetaminophen (Tylenol) 650 mg Q4H PRN ORAL Mild Pain (Pain Scale 1-3) 01/08/20 16:00 02/06/20 15:59 01/12/20 12:15 Albuterol Sulfate (Proventil MDI) 2 puff Q4H PRN INH Shortness of Breath 01/08/20 16:15 04/06/20 20:14 Apixaban (Eliquis) 2.5 mg BID ORAL 01/11/20 09:00 04/07/20 15:17 01/11/20 18:39 Diltiazem HCl (Cardizem CD) 120 mg DAILY ORAL 01/09/20 09:00 02/07/20 08:59 01/11/20 09:23 Docusate Sodium (Colace) 100 mg TWICE A DAY ORAL 01/08/20 18:00 02/06/20 17:59 01/11/20 09:21 Furosemide (Lasix) 40 mg BID ORAL 01/09/20 21:00 02/08/20 20:59 01/11/20 18:40 Magnesium Hydroxide (Mom) 30 ml HSPRN PRN ORAL Constipation 01/08/20 16:00 02/06/20 15:59 Metoclopramide HCl (Reglan) 5 mg Q6H PRN ORAL Nausea & Vomiting 01/08/20 16:00 02/06/20 15:59 Metolazone (Zaroxolyn) 5 mg BID ORAL 01/08/20 18:00 02/06/20 17:59 01/11/20 18:39 Midodrine (Pro-Amatine) 5 mg TID ORAL 01/08/20 18:00 04/06/20 17:59 01/12/20 09:53 Multivitamins (Multivitamins) 1 tab DAILY ORAL 01/09/20 09:00 02/07/20 08:59 01/11/20 09:22 Regadenoson (Lexiscan) 0.4 mg ONCE PRN IV cardiology 01/11/20 14:47 01/13/20 23:59 Spironolactone (Aldactone) 25 mg DAILY ORAL 01/09/20 09:00 02/07/20 08:59 01/11/20 09:21 Rajesh Green MD January 12, 2020 13:12
--- NOTE | 2020-01-12 15:27 | Diagnostic Imaging Report ---
Indication: Leg edema and leg pain Technique: Grayscale and duplex images of the bilateral lower extremity veins Comparison: None Findings: Bilaterally, grayscale and duplex images demonstrate no evidence of intraluminal thrombus. Normal phasic Doppler waveforms, demonstrating normal augmentation response and no evidence of valvular insufficiency. Greater saphenous vein(s) and tibial veins are patent. Normal compressibility. Impression: Negative for evidence of lower extremity deep venous thrombosis bilaterally
--- NOTE | 2020-01-14 11:28 | Discharge Summary ---
Discharge Summary Discharge Summary _ DATE OF ADMISSION: 01/07/2020 DATE OF DISCHARGE: 01/12/2020 DISCHARGED BY: Dr. Locke REASON FOR ADMISSION: 79 years old female, resident of assisted facility, with past medical history of hypertension, aortic stenosis, atrial fibrillation, history of CVA, COPD, early liver cirrhosis, chronic right pleural effusion, chronic kidney disease, presented for evaluation due to shortness of breath and recurrent right pleural effusion. Patient with a history of thoracentesis in the past. Last thoracentesis was done at the beginning of this year. Patient denied fever and cough. She denied nausea and vomiting. Patient came from the [facility] with confirmed coronavirus cases. Upon evaluation patient was afebrile , but hypoxic, requiring supplemental oxygen of 4 L via nasal cannula, saturating 98%. Laboratory work-up revealed no leukocytosis, stable hemoglobin and hematocrit. Urinalysis revealed evidence of urinary tract infection. Stable electrolytes. BUN 37, creatinine 1.5, consistent with known history of chronic kidney disease. Glucose 100. Lactic acid 2.5. Stable LFT. Troponin 0.010. EKG revealed atrial fibrillation with heart rate of 101 , nonspecific T wave changes. Chest x-ray revealed cardiomegaly large right and small left pleural effusion and mild interstitial edema. Patient was swabbed for COVID-19 and admitted for further management. CONSULTANTS: metal turner Dr. Heredia pulmonary Dr. Razo ID specialist Dr. Rajesh Green career development facilitator/oncologist Dr. Gregg [facility] COURSE: Patient admitted to telemetry floor. Supplemental oxygen provided and titrated to keep pulse oximetry above 92%. Patient was kept in isolation. Per cod clerk patient had transient high lactic acid unclear of the origin. Patient did not appear to be septic or infected. Pasting Inspector recommended to hold off on thoracentesis , given that this was a chronic effusion and there was a risk of trapped lung/pneumothorax. Echocardiogram demonstrated preserved ejection fraction of 55% with moderate pericardial effusion. No evidence of left ventricular hypertrophy. No evidence of wall motion abnormality to the extent visualized. Mild aortic insufficiency. Moderate mitral regurgitation. Severely elevated left atrial pressure grade 3. Severe tricuspid regurgitation. Right ventricular systolic pressure 148 consistent with severe pulmonary hypertension. No evidence of RV diastolic collapse with respiratory variation. Venous duplex bilateral lower extremity revealed no evidence of acute DVT. Patient started on diuresis with Lasix, Aldactone and Zaroxolyn with close monitoring of volumes and renal parameters. Patient was followed -up with chest x-ray, which was unchanged and showed moderate to large right pleural effusion. Troponin was negative. Anticoagulation with Eliquis continued. Heart rate was controlled with Cardizem. Blood pressure was closely managed with current regimen and remained stable. Blood cultures were negative. SARS-CoV-2 by PCR on 01/06 and 01/09 was not detected. Patient was kept off antibiotic as per ID specialist recommendation Hemoglobin and hematocrit were closely monitored with goal to keep hemoglobin above 7. Hemoglobin hematocrit remained stable; prior to discharge hemoglobin 12.2, hematocrit 36.4. Renal parameters and electrolytes were closely monitored, electrolytes corrected as needed , and nephrotoxic's were avoided. Creatinine remained in the same range. Patient clinically stabilized and was ready for discharge to the assisted facility for further management. FINAL DIAGNOSES: Recurrent right pleural effusion CHF Cor pulmonale Paroxysmal atrial fibrillation Recurrent nonsustained ventricular tachycardia Valvular heart disease with aortic stenosis Hypertension COPD Severe pulmonary hypertension / RVSP 145 Chronic kidney disease Anemia of chronic disease DISCHARGE MEDICATION See Medication Reconciliation list. DISCHARGE INSTRUCTION Patient was discharged to the assisted facility. Follow up with medical doctor at the facility. I have been assigned to dictate discharge summary for this account. I was not involved in the patient's management. Glory Burden NP January 14, 2020 11:28
== END 2020-01-12 15:40 | DRG 292 ==
LOC: EMR 12:48 → 4E 13:35 → EDBEDREQ 15:01 → 2E 01-08 15:04
DX: I13.0 Hypertensive heart and chronic kidney disease with heart failure and stage 1 through stage 4 chronic kidney disease, or unspecified chronic kidney disease (principal); I47.2 Ventricular tachycardia; I50.9 Heart failure, unspecified; I27.81 Cor pulmonale (chronic); Z79.01 Long term (current) use of anticoagulants; N18.9 Chronic kidney disease, unspecified; K80.20 Calculus of gallbladder without cholecystitis without obstruction; I35.0 Nonrheumatic aortic (valve) stenosis; I48.0 Paroxysmal atrial fibrillation; J44.9 Chronic obstructive pulmonary disease, unspecified; I27.20 Pulmonary hypertension, unspecified; D63.8 Anemia in other chronic diseases classified elsewhere
CPT/HCPCS: 36415; 71045; 80048; 80053; 81003; 82550; 82553; 83605; 83880; 84484; 85025; 85610; 85730; 86850; 86900; 86901; 87040; 87081; 87635; 93005; 93306; 93970; 99285